=== PATIENT | female | born 1980 | race Caucasian/White ===

== ENCOUNTER 2023-03-31 20:46 | Emergency (ER) | payer MEDICAID, SELFPAY ==
[2023-03-31 20:29] VITALS: BP 129/87; PULSE 75; RESP 18; TEMP 36.6; O2SAT 99; BMI 26.1
--- NOTE | 2023-03-31 20:40 | ED_ITS ---
HPI - General Adult General Chief complaint: Headache Stated complaint: NAUSEA/LIGHT HEADED Time Seen by Provider: 03/31/23 20:54 Source: patient Mode of arrival: ambulance Limitations: no limitations History of Present Illness HPI narrative: carbon monoxide exposure. Patient was cooking for the family and family out doors. She has a past history of headaches. 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 States she is accustomed to developing headaches. Developed headache tonight and also felt a little nauseated. The CO detectors in the house started beeping. she went out side. She was checked by Squad and felt she was ok. Her nausea has resolved but they informed her she should get checked out. States she is feeling better. Daily cigarette smoker Related Data Allergies Allergy/AdvReac Type Severity Reaction Status Date / Time No Known Drug Allergies Allergy Verified 03/31/23 20:34 Review of Systems ROS Status of ROS 10 or more systems reviewed and unremarkable except as noted in history and below Exam Constitutional Vital Signs - 24 hr 03/31/23 20:29 Temperature 98 F Pulse Rate [Monitor] 75 Respiratory Rate 18 Blood Pressure [Left Arm] 129/87 H Pulse Oximetry 99 Oxygen Delivery Method Room Air Common normals: no apparent distress and oriented x3 HENMT Common normals: normocephalic, head/scalp atraumatic and hearing grossly normal bilaterally Eye Common normals: PERRL, EOMs intact bilaterally and conjunctivae normal Respiratory Common normals: normal respiratory effort, no retractions, no use of accessory muscles and clear to auscultation bilaterally Cardio Common normals: no JVD, regular rate, regular rhythm, S1 normal heart sound and S2 normal heart sound GI Common normals: Normal to inspection, nondistended, normoactive bowel sounds present and soft to palpation Extremity Common normals: normal to inspection, full ROM and normal capillary refill Neuro Common normals: oriented x3 and CN's II-XII intact bilaterally Psych Common normals: mental status grossly normal Course Vital Signs Vital signs: Vital Signs Temperature 98 F 03/31/23 20:29 Pulse Rate 75 03/31/23 20:29 Respiratory Rate 18 03/31/23 20:29 Blood Pressure 129/87 H 03/31/23 20:29 Pulse Oximetry 99 03/31/23 20:29 Oxygen Delivery Method Room Air 03/31/23 20:29 Temperature 98 F 03/31/23 20:29 Pulse Rate 75 03/31/23 20:29 Respiratory Rate 18 03/31/23 20:29 Blood Pressure 129/87 H 03/31/23 20:29 Pulse Oximetry 99 03/31/23 20:29 Oxygen Delivery Method Room Air 03/31/23 20:29 Medical Decision Making MDM Narrative Medical decision making narrative: patient presents after exposure to CO at home. Mild symptoms of headache and nausea. Nausea has resolved. GARCIA is mild . Workup in the department is WNL except she has mild hypokalemia that was supplemented. Discharged home to follow up with her doctor Lab Data Labs: Lab Results 03/31/23 03/31/23 Range/Units 20:54 21:30 WBC 11.2 H (4.0-11.0) 10^3/uL RBC 4.42 (4.20-5.40) 10^6/uL Hgb 13.7 (12.0-16.0) g/dL Hct 40.2 (36.0-48.0) % MCV 91.0 (81.0-99.0) fL MCH 31.0 (26.7-34.0) pg MCHC 34.1 (29.9-35.2) g/dL RDW 13.4 (11.0-15.0) % Plt Count 275 (150-450) 10^3/uL MPV 9.4 L (9.5-13.5) fL Neut % (Auto) 62.2 (43.0-75.0) % Lymph % (Auto) 28.8 (20.5-60.0) % [place] % (Auto) 6.6 (1.7-12.0) % Eos % (Auto) 1.2 (0.9-7.0) % Baso % (Auto) 0.7 (0.2-2.0) % Neut # (Auto) 6.9 H (1.4-6.5) 10^3/uL Lymph # (Auto) 3.2 (1.2-3.8) 10^3/uL [place] # (Auto) 0.7 (0.3-0.8) 10^3/uL Eos # (Auto) 0.1 (0.0-0.7) 10^3/uL Baso # (Auto) 0.1 (0.0-0.1) 10^3/uL Abs Immat Gran (auto) 0.06 H (0.00-0.03) 10^3/uL Imm/Tot Granulo (auto) 0.5 (0.0-0.5) % ABG pH 7.437 (7.350-7.450) ABG pCO2 38.3 (35.0-45.0) mmHg ABG pO2 93.3 (80.0-100.0) mmHg ABG HCO3 25.8 (22.0-26.0) mmol/L ABG O2 Saturation 98.1 % ABG Base Excess 1.6 (-2.0-2.0) mmol/L Ayad Test Positive (POSITIVE) Sodium 143 (136-145) mmol/L Potassium 3.3 L (3.5-5.1) mmol/L Chloride 105 (98-107) mmol/L Carbon Dioxide 28.1 (21.0-32.0) mmol/L Anion Gap 13.2 BUN 10.0 (7.0-18.0) mg/dL Creatinine 0.85 (0.55-1.02) mg/dL Est GFR ( Amer) >60 (>=60) Est GFR (Non-Af Amer) >60 (>=60) BUN/Creatinine Ratio 11.8 Glucose 95 (74-106) mg/dL Calcium 9.0 (8.5-10.1) mg/dL Discharge Plan Discharge Chief Complaint: Headache Clinical Impression: Carbon monoxide exposure, Hypokalemia Instructions: Carbon Monoxide Poisoning (ED), Hypokalemia (ED) Stand Alone Forms: Portal Instructions Referrals: Yimi Melgoza MD [Primary Care Provider] - 1 week Follow Up Appointments: follow up with Dr Melgoza next week
[2023-03-31 21:32] LABS: ABG PCO2 38.3 mmHg (35.0-45.0); Base Excess ABG 1.6 mmol/L (-2.0-2.0); HCO3 ABG 25.8 mmol/L (22.0-26.0); Oxygen Saturation ABG 98.1 %; PO2 ABG 93.3 mmHg (80.0-100.0); pH ABG 7.437 (7.350-7.450)
[2023-03-31 21:33] LABS: Allen Test POSITIVE (POSITIVE); O2 Mode ROOM AIR
[2023-03-31 21:37] LABS: Basophils Absolute Auto 0.1 10^3/uL (0.0-0.1); Basophils Percent Auto 0.7 % (0.2-2.0); Eosinophils Absolute Auto 0.1 10^3/uL (0.0-0.7); Eosinophils Percent Auto 1.2 % (0.9-7.0); Hematocrit 40.2 % (36.0-48.0); Hemoglobin 13.7 g/dL (12.0-16.0); Immature Granulocytes Abs Auto 0.06 10^3/uL (0.00-0.03); Immature Granulocytes Pct Auto 0.5 % (0.0-0.5); Lymphocytes Absolute Auto 3.2 10^3/uL (1.2-3.8); Lymphocytes Percent Auto 28.8 % (20.5-60.0); Mean Corpuscular HGB Conc 34.1 g/dL (29.9-35.2); Mean Platelet Volume 9.4 fL (9.5-13.5); Monocytes Absolute Auto 0.7 10^3/uL (0.3-0.8); Monocytes Percent Auto 6.6 % (1.7-12.0); Neutrophils Absolute Auto 6.9 10^3/uL (1.4-6.5); Neutrophils Percent Auto 62.2 % (43.0-75.0); Platelet Count 275 10^3/uL (150-450); Red Blood Count 4.42 10^6/uL (4.20-5.40); Red Cell Distribution Width 13.4 % (11.0-15.0); White Blood Count 11.2 10^3/uL (4.0-11.0)
[2023-03-31 21:53] LABS: Anion Gap 13.2; BUN Creatinine Ratio 11.8; Carbon Dioxide 28.1 mmol/L (21.0-32.0); Chloride 105 mmol/L (98-107); Estimated GFR (African America >60 (>=60); Estimated GFR (Non-African Ame >60 (>=60); Glucose 95 mg/dL (74-106); Potassium 3.3 mmol/L (3.5-5.1); Sodium 143 mmol/L (136-145)
[2023-03-31] MEDS: POTASSIUM CHLORIDE 10 MEQ ER TABLET 40 MEQ PO (23:00)
== END 2023-03-31 23:06 | disposition home or self-care (01) ==
PROVIDERS: Emergency Provider Internal Medicine; PCP Family Medicine
DX: E87.6 Hypokalemia (principal); T58.91XA Toxic effect of carbon monoxide from unspecified source, accidental (unintentional), initial encounter; F17.210 Nicotine dependence, cigarettes, uncomplicated
CPT/HCPCS: 36415; 36600; 80048; 82805; 85025; 99284

== ENCOUNTER 2023-07-07 10:52 | Outpatient (OUT) | payer MEDICAID, SELFPAY ==
[2023-07-07 11:42] LABS: Basophils Absolute Auto 0.1 10^3/uL (0.0-0.1); Basophils Percent Auto 0.6 % (0.2-2.0); Eosinophils Absolute Auto 0.1 10^3/uL (0.0-0.7); Eosinophils Percent Auto 1.4 % (0.9-7.0); Hematocrit 44.7 % (36.0-48.0); Immature Granulocytes Abs Auto 0.03 10^3/uL (0.00-0.03); Immature Granulocytes Pct Auto 0.3 % (0.0-0.5); Lymphocytes Absolute Auto 2.9 10^3/uL (1.2-3.8); Lymphocytes Percent Auto 30.8 % (20.5-60.0); Mean Corpuscular HGB Conc 33.6 g/dL (29.9-35.2); Mean Corpuscular Hemoglobin 30.8 pg (26.7-34.0); Mean Corpuscular Volume 91.8 fL (81.0-99.0); Mean Platelet Volume 10.2 fL (9.5-13.5); Monocytes Absolute Auto 0.6 10^3/uL (0.3-0.8); Monocytes Percent Auto 6.8 % (1.7-12.0); Neutrophils Absolute Auto 5.6 10^3/uL (1.4-6.5); Neutrophils Percent Auto 60.1 % (43.0-75.0); Platelet Count 312 10^3/uL (150-450); Red Blood Count 4.87 10^6/uL (4.20-5.40); Red Cell Distribution Width 12.3 % (11.0-15.0); White Blood Count 9.4 10^3/uL (4.0-11.0)
[2023-07-07 11:43] LABS: Estimated Average Glucose 117 mg/dL; Glycohemoglobin A1C 5.7 % (4.5-6.2)
[2023-07-07 12:40] LABS: Alanine Aminotransferase 44 U/L (14-59); Albumin Globulin Ratio 1.1; Albumin Level 3.9 g/dL (3.4-5.0); Alkaline Phosphatase 94 U/L (46-116); Anion Gap 12.3; Aspartate Amino Transferase 17 U/L (15-37); BUN Creatinine Ratio 9.2; Bilirubin Total 0.4 mg/dL (0.2-1.0); Calcium 9.1 mg/dL (8.5-10.1); Carbon Dioxide 29.8 mmol/L (21.0-32.0); Chloride 103 mmol/L (98-107); Chol HDL Ratio 7.5; Cholesterol 291 mg/dL (<=200); Estimated GFR (African America >60 (>=60); Estimated GFR (Non-African Ame >60 (>=60); Free T3 2.79 pg/mL (2.18-3.98); Globulin 3.7 g/dL; Glucose 108 mg/dL (74-106); HDL Cholesterol 39 mg/dL (40-60); Potassium 4.1 mmol/L (3.5-5.1); Sodium 141 mmol/L (136-145); Thyroid Stimulating Hormone 1.537 uIU/mL (0.358-3.740); Total Protein 7.6 g/dL (6.4-8.2); Triglycerides 158 mg/dL (<=150); VLDL CHOLESTEROL 31.6 mg/dL
[2023-07-08 12:09] LABS: Insulin 12.4 uIU/mL (2.6-24.9)
== END 2023-07-07 10:53 | disposition home or self-care (01) ==
LOC: LAB 10:53
PROVIDERS: PCP Family Medicine; Visit Provider Family Medicine
DX: R22.2 Localized swelling, mass and lump, trunk (principal); R00.0 Tachycardia, unspecified; E78.5 Hyperlipidemia, unspecified; R73.09 Other abnormal glucose; D64.9 Anemia, unspecified
CPT/HCPCS: 36415; 80053; 80061; 83036; 83525; 83540; 84436; 84443; 84481; 85025

== ENCOUNTER 2023-07-09 10:58 | Emergency (ER) | payer MEDICAID, SELFPAY ==
[2023-07-09 11:04] VITALS: BP 140/78; PULSE 77; RESP 20; TEMP 36.6; BMI 25.3
--- NOTE | 2023-07-09 11:44 | CT_ITS ---
The [address] [address] Patient Name: CHANTEL MARR MRN: [id number] date: 1980 Sex: F Assigned Patient Location: ER Current Patient Location: ER Accession/Order Number: [id number] Exam Date: 07/09/2023 12:05 Report Date: 07/09/2023 12:57 At the request of: MATTI ELIZALDE Procedure: CT chest w con EXAM: CT chest w con HISTORY: pain upper lateral chest wall, heavy smoker COMPARISON: 10/18/2022. TECHNIQUE: Axial CT imaging was performed through the chest with intravenous contrast. Multiplanar reformats were performed. Dose reduction techniques were achieved by using automated exposure control and/or adjustment of mA and/or kV according to patient size and/or use of iterative reconstruction technique. FINDINGS: Lungs: No consolidation, mass, or effusion. Mild emphysema. Airways: Normal. Mediastinum: No adenopathy. Aorta: No aneurysm. Cardiac: Normal size. No pericardial effusion. Pulmonary vasculature: Normal morphology. Bones: There are degenerative findings without acute bony abnormality. Axilla: No adenopathy. Thyroid gland: No abnormality demonstrated on provided imaging. Soft tissues: Unremarkable. Upper abdomen: Significant steatosis of the liver. Postsurgical clips. Other findings: None. CT/CT chest w con IMPRESSION: 1. No evidence of acute intrathoracic abnormality. No CT findings to explain patient's pain of the lateral right upper chest wall-recommend clinical management. 2. Significant steatosis of the liver. 3. Mild emphysema. Electronically authenticated by: ARTHUR WALTERS Date: 07/09/2023 12:57
[2023-07-09 12:31] VITALS: BP 140/90; PULSE 73; RESP 18; O2SAT 97
--- NOTE | 2023-07-09 13:10 | ED.GENADUL1 ---
HPI - General Adult General Chief complaint: Extremity Injury, Upper Stated complaint: RT SHOULDER PAIN Time Seen by Provider: 07/09/23 11:32 Source: patient Mode of arrival: walk-in Limitations: no limitations History of Present Illness HPI narrative: patient's here complaining of pain in her right shoulder area. Actually the specific area of discomfort is underneath the shoulder in the axillary area and the lateral scapular area in the posterior chest wall. She was seen here previously for this. X-rays were done that showed no gross abnormality but she was referred to a shoulder specialist orthopedist in [facility]. She followed up with that physician and his recommendation was physical therapy. She's not had any other treatment or intervention. She is right-handed dominant. She does repetitive work with her right arm. She said the pain is quite intense and it is in the area that described above not so much in the anterior glenoid area. There is no consistent tingling paresis paresthesias or radiculopathy going down into her wrist and hand area. She does not have any pain in the neck. She has not had a mammogram recently but is not known to have any breast disease. Her family doctor is talked her about follow-up mammograms. She's nota lumps. Related Data Home Medications Medication Instructions Recorded Confirmed diclofenac sodium 75 mg 75 mg PO Q12H 07/09/23 07/09/23 tablet,delayed release metoprolol tartrate 25 mg tablet 25 mg PO DAILY 07/09/23 07/09/23 omeprazole 20 mg capsule,delayed 20 mg PO DAILY 07/09/23 07/09/23 release simvastatin 20 mg tablet 20 mg PO DAILY 07/09/23 07/09/23 tizanidine 4 mg tablet 8 mg PO BEDTIME PRN muscle pain 07/09/23 07/09/23 Allergies Allergy/AdvReac Type Severity Reaction Status Date / Time No Known Drug Allergies Allergy Verified 03/31/23 20:34 PFSH PFSH Social History Smoking status: Current every day smoker Exam Narrative Exam Narrative: awake alert oriented ?3. Not uncomfortable when sitting still. Vital signs are stable. Examination the area of interest shows her to have no lymph nodes tenderness swelling or infectious process in the right axilla. Passive range of motion of the shoulder reproduces no discomfort in the shoulder girdle itself. She is able to elevate externally rotate internally rotate the shoulder and has discomfort in the upper axillary area and the lateral aspect of the scapular area on the right. There is no evidence of shingles or other skin lesions in this area. Her lungs are clear with no wheezes rales or rhonchi there is no pleural or pericardial rub. We did defer a breast examination since she has a primary care doctor and an [employer]. She does not known have any lumps in her breasts. Vascular examination upper limb is normal. Does not have any pain palpation the neck area. Constitutional Vital Signs, click to edit/add: Last Vital Signs Temp 97.8 F 07/09/23 11:04 Pulse 73 07/09/23 12:31 Resp 18 07/09/23 12:31 BP 140/90 07/09/23 12:31 Pulse Ox 97 07/09/23 12:31 O2 Del Method Room Air 07/09/23 11:04 Course Vital Signs Vital signs: Vital Signs Temperature 97.8 F 07/09/23 11:04 Pulse Rate 77 07/09/23 11:04 Respiratory Rate 20 07/09/23 11:04 Blood Pressure 140/78 07/09/23 11:04 Oxygen Delivery Method Room Air 07/09/23 11:04 Temperature 97.8 F 07/09/23 11:04 Pulse Rate 73 07/09/23 12:31 Respiratory Rate 18 07/09/23 12:31 Blood Pressure 140/90 07/09/23 12:31 Pulse Oximetry 97 07/09/23 12:31 Oxygen Delivery Method Room Air 07/09/23 11:04 Medical Decision Making MDM Narrative Medical decision making narrative: this patient's had this discomfort for several months now. She's been in thyroid by orthopedics who recommended physical therapy that she was not able to do. She is extremely active with her right arm. Because of her heavy, heavy smoking history I felt to be prudent to do a CT of her upper chest to make sure there is nothing in the pleural space ribs or upper chest that would account for her findings with referred pain. Her CT was negative for any acute findings but she did have a fatty liver that was discussed with her. Incidentally she does not drink much alcohol at all. I felt to be prudent follow-up with the orthopedic physician of record and consider following his treatment recommendations. She was also advised to follow-up with her MOLD LOFT WORKER or primary care doctor for a complete breast examination and she should also do self breast examinations. It is unlikely that that is contributing to her symptomatology in my opinion Discharge Plan Discharge Chief Complaint: Extremity Injury, Upper Clinical Impression: Chest wall pain Patient Disposition: Home, Self-Care Time of Disposition Decision: 13:25 Prescriptions / Home Meds: No Action diclofenac sodium 75 mg tablet,delayed release (DR/EC) 75 mg PO Q12H metoprolol tartrate 25 mg tablet 25 mg PO DAILY omeprazole 20 mg capsule,delayed release(DR/EC) 20 mg PO DAILY simvastatin 20 mg tablet 20 mg PO DAILY tizanidine 4 mg tablet 8 mg PO BEDTIME PRN (Reason: muscle pain) Additional Instructions: continue regular doses of NSAIDs for five days such as ibuprofen or Aleve. Follow-up with your orthopedist that he was seen previously for up-to-date treatment recommendations. Consider breast examination with your private physician Stand Alone Forms: Portal Instructions Referrals: Yimi Melgoza MD [Primary Care Provider] - 1 week
== END 2023-07-09 13:42 | disposition home or self-care (01) ==
PROVIDERS: Emergency Provider Emergency Medicine Emergency Medical Services; PCP Family Medicine
DX: R07.89 Other chest pain (principal); Z79.899 Other long term (current) drug therapy; F17.210 Nicotine dependence, cigarettes, uncomplicated
CPT/HCPCS: 71260; 99284; Q9967

== ENCOUNTER 2023-07-14 08:57 | Outpatient (OUT) | payer MEDICAID, SELFPAY ==
--- NOTE | 2023-07-14 08:59 | MM_ITS ---
Patient: CHANTEL MARR Exam Date: 07/14/2023 : 1980 Gender:F Ordering : DR Yimi Melgoza . Admission #: [id number] Family : DR Mic Giraldo . Order #: [id number] CLICK HERE TO VIEW EXAM RADIOLOGY REPORT PROCEDURE: MM TOMOSYNTHESIS SCREENING BI COMPARISON: MG MAMM SCREEN TOY W CAD, 04/15/2020. INDICATIONS: Screening Calculator Name NCI Breast Cancer Risk Assessment Tool 5 Year Breast Cancer Risk 0.60% Lifetime Breast Cancer Risk 7.70% Personal Breast Cancer No Personal Ovarian Cancer No Treatments None Family Cancers None LOCATION: [facility] BREAST COMPOSITION: Heterogeneously dense,which may obscure small masses. FINDINGS: DIAGNOSTIC CATEGORY 2--BENIGN FINDING: RIGHT BREAST: No significant suspicious finding. Scattered benign-appearing lymph nodes are present. No significant change has occurred. LEFT BREAST: No significant suspicious finding. No significant change has occurred. RECOMMENDATIONS: ROUTINE MAMMOGRAM AND CLINICAL EVALUATION IN 12 MONTHS. PLEASE NOTE: A NORMAL MAMMOGRAM DOES NOT EXCLUDE THE POSSIBILITY OF BREAST CANCER. A CLINICALLY SUSPICIOUS PALPABLE LUMP SHOULD BE BIOPSIED. Dictated by: James Solis M.D. on 07/15/2023 at 10:51 Approved by: James Solis M.D. on 07/15/2023 at 10:56
== END 2023-07-14 08:58 | disposition home or self-care (01) ==
LOC: MAMMO 08:57
PROVIDERS: PCP Family Medicine; Visit Provider Family Medicine
DX: Z12.31 Encounter for screening mammogram for malignant neoplasm of breast (principal)
CPT/HCPCS: 77063; 77067

== ENCOUNTER 2023-08-22 15:01 | Outpatient (OUT) | payer MEDICAID, SELFPAY ==
--- NOTE | 2023-08-22 15:09 | MR_ITS ---
[place] [id number] Patient Name: CHANTEL MARR MRN: [id number] date: 1980 Sex: F Assigned Patient Location: MRI Current Patient Location: MRI Accession/Order Number: [id number] Exam Date: 08/22/2023 15:15 Report Date: 08/22/2023 22:04 At the request of: EILEEN BELTRAN Procedure: MR cervical spine wo con EXAMINATION: MR cervical spine wo con HISTORY: Cervical Radiculopathy M54.12 pain in the right shoulder. COMPARISON: None. TECHNIQUE: Multiplanar, multisequence MRI images of the cervical spine with intravenous contrast. FINDINGS: The cervical spine is straightened. There is no subluxation. Bone marrow signal appears within normal limits. Disc space heights preserved. 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 No definite cord compression or abnormal signal in the cervical cord. C2-C3: Mild left facet arthropathy without spinal canal foraminal stenosis. C3-C4: There is a broad-based central to left foraminal disc protrusion. There is moderate bilateral facet arthropathy and left uncovertebral osteophyte. There is resulting moderate central spinal canal and asymmetric moderate left lateral recess stenosis. C4-C5: Broad-based disc protrusion most prominent in the central zone. Moderate facet arthropathy. There is moderate spinal canal stenosis without cord compression. No foraminal stenosis. C5-C6: Moderate bilateral facet arthropathy without spinal canal or foraminal stenosis. C6-C7: Broad-based disc protrusion. Mild spinal canal stenosis. No foraminal stenosis. C7-T1: No spinal canal or significant neural foraminal stenosis. MR/MR cervical spine wo con IMPRESSION: 1. There is mild to moderate degenerative disc disease and facet arthropathy in the cervical spine. 2. At C3-C4, there is moderate spinal canal and moderate left foraminal stenosis secondary to a central to left foraminal disc protrusion. 3. At C4-C5, there is moderate spinal canal stenosis secondary to central disc protrusion. Electronically authenticated by: DEBRA ALEXANDER Date: 08/22/2023 22:04
== END 2023-08-22 15:02 | disposition home or self-care (01) ==
LOC: MRI 15:01
PROVIDERS: PCP Family Medicine; Visit Provider Family Medicine
DX: M54.12 Radiculopathy, cervical region (principal); M50.30 Other cervical disc degeneration, unspecified cervical region; M48.02 Spinal stenosis, cervical region
CPT/HCPCS: 72141

== ENCOUNTER 2023-11-15 11:27 | Outpatient (OUT) | payer MEDICAID, SELFPAY ==
--- NOTE | 2023-11-15 11:32 | MR_ITS ---
[address] [address] Patient Name: CHANTEL MARR MRN: [id number] date: 1980 Sex: F Assigned Patient Location: MRI Current Patient Location: MRI Accession/Order Number: [id number] Exam Date: 11/15/2023 11:55 Report Date: 11/15/2023 14:58 At the request of: EILEEN BLETRAN Procedure: MR head/brain wo con EXAM: MR head/brain wo con CLINICAL INDICATION: cerebral cysts G93.0, Migraine G43.909 COMPARISON: MRI brain 06/15/2021. TECHNIQUE/PROTOCOL: Standard noncontrast protocol brain MRI performed (Sagittal T1 with axial T1, T2, GRE, FLAIR, and diffusion-weighted imaging). FINDINGS: No restricted diffusion, extra-axial fluid collection, hydrocephalus, midline shift, or other mass effect. Intracranial flow voids are maintained. Unchanged scattered small hyperintense T2/FLAIR periventricular and subcortical foci. Stable right parietal craniotomy changes with volume loss of the superior right parietal lobe. Cystic enlargement of the posterior body of the right lateral ventricle is morphologically unchanged since 06/15/2021. Normal marrow signal. No soft tissue abnormalities. Trace scattered paranasal sinus mucosal thickening, most pronounced in the right maxillary sinus. Trace bilateral mastoid effusions. MR/MR head/brain wo con IMPRESSION: 1. No acute intracranial process. 2. Stable right parietal craniotomy changes with volume loss of the superior right parietal lobe. Cystic enlargement of the posterior body of the right lateral ventricle is morphologically unchanged since 06/15/2021. 3. Unchanged scattered small hyperintense T2/FLAIR periventricular and subcortical foci. These could reflect sequela of migraine headaches, demyelinating process, or chronic microvascular angiopathic changes. Electronically authenticated by: MICHAEL BELTRE Date: 11/15/2023 14:58
--- OUTSIDE RECORDS SUMMARY | 2023-11-15 11:33 | XMS_ITS | CCD ---
Author Name Unknown Address [address] [place] [address] Organization [facility] [place] Care Team Providers Care Business Affairs Manager Name Role Phone Eileen Melgoza Primary Care Physician José CLARK Attending Unavailable José CLARK Attending Unavailable MARY WORRELL Admitting Unavailable MARY WORRELL Attending Unavailable HOY ., DR ARELLANO Primary Care Unavailable MARY WORRELL Consulting Unavailable HOY ., DR ARELLANO Admitting Unavailable HOY ., DR ARELLANO Attending Unavailable HOY ., DR ARELLANO Primary Care Unavailable HOY ., DR ARELLANO Consulting Unavailable PAULETTE MKCEON Consulting Unavailable HOY ., DR ARELLANO Primary Care Unavailable PAY ., DR OCONNOR Admitting Unavailable PAY ., DR OCONNOR Attending Unavailable PAY ., DR OCONNOR Consulting Unavailable HOY ., DR ARELLANO Primary Care Unavailable HAY ., DR LAWTON Admitting Unavailable HAY ., DR LAWTON Attending Unavailable HAY ., DR LAWTON Consulting Unavailable NEFPAULETTE PRESSLEY Consulting Unavailable HOY ., DR ARELLANO Admitting Unavailable HOY ., DR ARELLANO Attending Unavailable HOY ., DR ARELLANO Primary Care Unavailable HOY ., DR ARELLANO Consulting Unavailable ZIEBER, DR MEHDI Jackson Consulting Unavailable HOY ., DR ARELLANO Admitting Unavailable HOY ., DR ARELLANO Attending Unavailable HOY ., DR ARELLANO Primary Care Unavailable HOY ., DR ARELLANO Consulting Unavailable [place], DR IDRIS [place] Consulting Unavailable HOY ., DR ARELLANO Admitting Unavailable HOY ., DR ARELLANO Attending Unavailable HOY ., DR ARELLANO Primary Care Unavailable HOY ., DR ARELLANO Admitting Unavailable HOY ., DR ARELLANO Attending Unavailable HOY ., DR ARELLANO Primary Care Unavailable MISC, DR UNGER Admitting Unavailable MISC, DR UNGER Attending Unavailable HOY ., DR ARELLANO Primary Care Unavailable HOY ., DR ARELLANO Admmark Unavailable HOY ., DR ARELLANO Attending Unavailable HOY ., DR ARELLANO Primary Care Unavailable Erwin Salgado Unavailable Unavailable Primary Care Provider Unavailabl e PROVIDER, UNKNOWN Attending Unavailable PROVIDER, UNKNOWN Admitting Unavailable Allergies Allergy Classification Reported Allergen(s) Allergy Type Date of Onset Reaction(s) Facility (1 source) No Known Medication Allergies; Translations: [No Known Medication Allergies] Propensity to adverse reactions (disorder) [facility] Medications Current Medications Medication Drug Class(es) Dates Sig (Normalized) Sig (Original) Acetaminophen (1 source) Acetaminophen Ac tive celecoxib 200 mg oral capsule (1 source) Nonsteroidal Anti-inflammatory Drug take 1 capsule by mouth every twenty-four hours Celecoxib 200 MG 1 capsule with food Orally Once a day Active omeprazole 20 mg delayed release oral capsule (1 source) Proton Pump Inhibitor take 1 capsule by mouth once daily Omeprazole 20 MG 1 capsule 30 minutes before morning meal Orally Once a day Active Completed/Discontinued Medications Medication Drug Class(es) Dates Sig (Normalized) Sig (Original) triamcinolone acetonide 40 mg/ml injectable suspension (1 source) Corticosteroid Start: 12-30-2022 Kenalog-40 Dec, 40 mg Problems Active Problems Problem Classification Problem Date Documented Da te Episodic/Chronic Abdominal pain (1 source) Abdominal pain; Translations: [Abdominal pain] Episodic Anxiety disorders (3 sources) Panic attack; Translations: [Other specified anxiety disorders] Onset: 2 05-05-2022 Chronic Chronic obstructive pulmonary disease and bronchiectasis (2 sources) Chronic obstructive lung disease 05-05-2022 Chronic Esophageal disorders (2 sources) Gastroesophageal reflux disease 05-05-2022 Chronic Headache; including migraine (2 sources) Migraine 05-05-2022 Chronic Mood disorders (2 sources) Depressive disorder 05-05-2022 Chronic Neoplasms of unspecified nature or uncertain behavior (3 sources) Neoplasm of uncertain behavior of skin; Translations: [Neoplasm of uncertain behavior of skin] Onset: 2 Episodic Noninfectious gastroenteritis (2 sources) Chronic diarrhea 05-05-2022 Episodic Nonspecific chest pain (5 sources) Chest pain, unspecified; Translations: [CHEST PAIN UNSPECIFIED] Onset: 2 Episodic Other aftercare (1 source) Other longterm (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 therapy; Translations: [OTH DETENTION CURRENT DRUG THERAPY] Onset: 3 Episodic Other and unspecified benign neoplasm (2 sources) Tubular adenoma 05-05-2022 Episodic Other connective tissue disease (1 source) Bursitis of right shoulder Episodic Other connective tissue disease (1 source) Other enthesopathies, not elsewhere classified Episodic Other female genital disorders (2 sources) Dysplasia of cervix 05-05-2022 Episodic Other gastrointestinal disorders (2 sources) Chronic idiopathic constipation 05-05-2022 Chronic Other lower respiratory disease (4 sources) Dyspnea, unspecified; Translations: [DYSPNEA UNSPECIFIED] Onset: 2 Episodic Other lower respiratory disease (5 sources) Chronic cough; Translations: [CHRONIC COUGH] Onset: 2 Episodic Other nervous system disorders (2 sources) Cerebral cyst 05-05-2022 Chronic Other non-traumatic joint disorders (4 sources) Pain in right shoulder; Translations: [PAIN IN RIGHT SHOULDER] Onset: 3 Episodic Other non-traumatic joint disorders (1 source) Other specified joint disorders, right shoulder Episodic Other nutritional; endocrine; and metabolic disorders (2 sources) Overweight in adulthood with body mass index of 25 or more but less than 30 05-26-2022 Episodic Poisoning by nonmedicinal substances (2 sources) Toxic effect of carbon monoxide; Translations: [Toxic effect of carbon monoxide from unspecified source, accidental (unintentional), initial encounter] Onset: 3 03-31-2023 Episodic Residual codes; unclassified (1 source) Acquired absence of other specified parts of digestive tract; Translations: [ACQ ABSENCE OTH PART DIGESTV TRACT] Onset: 3 Episodic Spondylosis; intervertebral disc disorders; other back problems (2 sources) Cervical radiculopathy 05-05-2022 Episodic Sprains and strains (1 source) Strain of unspecified muscle, fascia and tendon at shoulder and upper arm level, left arm, initial encounter; Translations: [STRN UNS MSC F TND SHLDR UA LA INIT] Onset: 3 Episodic Substance-related disorders (3 sources) Smoker; Translations: [Nicotine dependence, cigarettes, uncomplicated] Onset: 2 05-05-2022 Chronic Unclassified (3 sources) COUGH, UNSPECIFIED; Translations: [COUGH, UNSPECIFIED] Onset: 2 Unclassified (1 source) CONTACT W/AND (SUSP) EXPOS COVID-19; Translations: [CONTACT W/AND (SUSP) EXPOS COVID-19] Onset: 2 Past or Other Problems Problem Classification Problem Date Documented Da te Episodic/Chronic Unclassified (1 source) COUGH, UNSPECIFIED; Translations: [COUGH, UNSPECIFIED] Onset: 04-01-2022 Results Test Name Value Interpretation Reference Range Facility Progress Noteson 03-31-2023 Director Of Culture Authentication Interface Message Text EMERGENCY TRIAGE, TREAT AND TRANSPORT (ET3) DOCUMENTATION OF TELEHEALTH VISIT Date / Time: 03/31/20231999 Name: Maddison Miranda : 1980 SSN: (Not on file) EMS Agency: [facility] [x] Verbal consent obtained [] Implied consent - patient with potential emergency medical condition requiring assessment of capacity to refuse treatment and/or transport VITAL SIGNS: see flowsheet documentation Reason for Telehealth Visit: Carbon monoxide exposure History of Present Illness: Exposure to CO while cooking with gas stove. Also has gas dryer and furnace but neither were running. [place] nauseous and lightheaded, headache. Was inside for about an hour. Eyes hurt a little bit too. CO detector went off in basement below kitchen where she was cooking. Chronic neuro symptoms due to prior brain surgery - has a cyst on her brain that she is getting procedures to shrink to allow CSF flow. Fire checked a level and it was 8 initially. Additional pertinent PMHx, SocHx, FamHx: prior brain surgery Review of Systems: Denies the following: new numbness, tingling, weakness, double vision Exam: General: Awake, no distress ENT: normocephalic, atraumatic Pulmonary: No respiratory distress Cardiovascular: Well perfused Neurologic: Oriented to person, place, time and events. Moving all extremities equally. Psychiatric: Appropriate. Good insight and judgement. Medical Decision Making: Symptoms could be c/w exposure to CO poisoning. FD confirmed that the level was elevated and the source was a water heater. Advised patient she should get checked out in hospital to see HbCO and she is agreeable. Additional history from EMS and FD Disposition Supported by Telehealth Assessment: ET3 transport decisions: Transport to hospital EMS Disposition Reported: Same ET3 Encounter Completed by: Viral Dowling MD Normal [facility] XR SHOULDER RT 2V or >on XR SHOULDER RT 2V or > EXAM: XR SHOULDER RT 2V or > HISTORY: Pain of right shoulder joint for the past 2 weeks with no known injury. COMPARISON: None. TECHNIQUE: 3 views of the right shoulder were obtained. FINDINGS: There is no evidence of an acute fracture or dislocation. There is mild narrowing of the acromioclavicular joint. The glenohumeral joint appears intact. No abnormal soft tissue calcifications are present. IMPRESSION: No acute fracture or dislocation. Mild degenerative changes are seen at the acromial clavicular joint. Comparison with a previous study may be helpful in determining the chronicity of these findings. Electronically authenticated by: PAULETTE MCKEON Date: 2022-12-28 14:22 Normal [facility] CT CHEST W CONon 10-18-2022 CT CHEST W CON EXAMINATION: CT CHES T W CON HISTORY: Dyspnea , posterior left chest pain, cough COMPARISON: No relevant comparison available. TECHNIQUE: Multi-planar CT images were created with IV contrast. Axial, Coronal, and Sagittal images. Dose reduction techniques were achieved by using automated exposure control and/or adjustment of mA and/or kV according to patient size and/or use of iterative reconstruction technique. FINDINGS: LUNGS: No visible pulmonary disease. PLEURA: No mass, effusion, or pneumothorax. VASCULATURE: No abnormality. ANDRZEJ: No mass or adenopathy. MEDIASTINUM: No mass or adenopathy. CARDIAC: No enlargement, pericardial thickening, or significant calcification. AORTA: No aneurysm or dissection. CHEST WALL: No mass or axillary adenopathy. BONES: No bone lesion or fracture. LIMITED ABDOMEN: No suspicious findings Limited images of the upper abdomen. OTHER: Negative. IMPRESSION: 1. Clear lungs. No suspicious findings to account for patient's symptoms. 2. Unremarkable ribs. Electronically authenticated by: MEHDI CHAVEZ Date: 2022-10-18 15:16 Normal [facility] PROF 14(COMP METB)on 022 Albumin [Mass/Vol] 3.9 g/dL Normal 3.4-5.0 [facility] Comment on above: Performed By: #### H STROBETSY, CMP #### [facility] [address] [place] [address] Dr. Adriana Pandey Albumin/Globulin [Mass ratio] 1.2 {ratio} Normal [facility] Comment on above: Performed By: #### H STROPN, CMP #### [facility] [address] [address] [address] Adriana Pandey ALP [Catalytic activity/Vol] 92 U/L Normal 46-116 [facility] Comment on above: Performed By: #### H STROPN, CMP #### [facility] [address] [address] [address] Adriana Pandey ALT [Catalytic activity/Vol] 29 U/L Normal 14-59 [facility] Comment on above: Performed By: #### H STROPN, CMP #### [facility] [address] [address] [address] Adriana Pandey Anion gap [Moles/Vol] 15.7 mmol/L Normal [facility] Comment on above: Performed By: #### H STROPN, CMP #### [facility] [address] [place] [address] Dr. Adriana Pandey AST [Catalytic activity/Vol] 17 U/L Normal 15-37 [facility] Comment on above: Performed By: #### H STROPN, CMP #### [facility] [address] [place] [address] Dr. Adriana Pandey Bilirubin [Mass/Vol] 0.2 mg/dL Normal 0.2-1.0 [facility] Comment on above: Performed By: #### H STROPN, CMP #### [facility] [address] [place] [address] Dr. Adriana Pandey Calcium [Mass/Vol] 8.9 mg/dL Normal 8.5-10.1 [facility] Comment on above: Performed By: #### H STROPN, CMP #### [facility] [address] [place] [address] Dr. Adriana Pandey Chloride [Moles/Vol] 101 mmol/L Normal 98-107 [facility] Comment on above: Performed By: #### H STROPN, CMP #### [facility] [address] [place] [address] Dr. Adriana Pandey CO2 [Moles/Vol] 24.8 mmol/L Normal 21.0-32.0 [facility] Comment on above: Performed By: #### H STROPN, CMP #### [facility] [address] [address] [address] Adriana Pandey Creatinine [Mass/Vol] 0.91 mg/dL Normal 0.55-1.02 [facility] Comment on above: Performed By: #### H STROPN, CMP #### [facility] [address] [address] [address] Adriana Pandey EGFR-AF BOTSWANAN >60 Normal >=60 [facility] Comment on above: Performed By: #### H STROPN, CMP #### [facility] [address] [place] [address] Dr. Adriana Pandey EGFR-NON AF BOTSWANAN >60 Normal >=60 [facility] Comment on above: Performed By: #### H STROPN, CMP #### [facility] [address] [place] [address] Dr. Adriana Pandey Globulin (S) [Mass/Vol] 3.3 g/dL Normal [facility] Comment on above: Performed By: #### H STROPN, CMP #### [facility] [address] [place] [address] Dr. Adriana Pandey Glucose [Mass/Vol] 134 mg/dL Critically high 74-[address] [facility] Comment on above: Performed By: #### H STROPN, CMP #### [facility] [address] [address] [address] Adriana Pandey Potassium [Moles/Vol] 3.5 mmol/L Normal 3.5-5.1 [facility] Comment on above: Performed By: #### H STROPN, CMP #### [facility] [address] [address] [address] Adriana Pandey Protein [Mass/Vol] 7.2 g/dL Normal 6.4-8.2 [facility] Comment on above: Performed By: #### H STROPN, CMP #### [facility] [address] [place] [address] Dr. Adriana Pandey Sodium [Moles/Vol] 138 mmol/L Normal 136-145 [facility] Comment on above: Performed By: #### H ERAN, CMP #### [facility] [address] [place] [address] Dr. Adriana Pandey Urea nitrogen [Mass/Vol] 12.0 mg/dL Normal 7.0-18.0 [facility] Comment on above: Performed By: #### H ERAN, CMP #### [facility] [address] [place] [address] Dr. Adriana Pandey Urea nitrogen/Creatinine [Mass ratio] 13.2 mg/mg Normal [facility] Comment on above: Performed By: #### H ERAN, CMP #### [facility] [address] [place] [address] Dr. Adriana Pandey TROPONIN, HIGH SENSITIVITYon 10-01-2022 HSTROP 4.1 pg/mL Normal 4.0-51.3 [facility] Comment on above: Result Comment: CUT- OFF POINTS HAVE BEEN ESTABLISHED BASED ON THE FOURTH UNIVERSAL DEFINITIONS OF MYOCARDIAL INFARCTION. THE UPPER REFERENCE LIMIT (URL) OF TROPONIN, DEFINED THE 99TH PERCENTILE OF cTnI DISTRIBUTION IN A REFERENCE POPULATION, HAS BEEN CONFIRMED THE DECISION THRESHOLD FOR [place] DIAGNOSIS. Performed By: #### H ERAN, CMP #### [facility] [address] [place] [address] Dr. Adriana Pandey XR CHEST 2 Von 09-22-2022 XR CHEST 2 V EXAM: XR CHEST 2 V HISTORY: Dyspnea . This is a 41-year-old with chronic intermittent cough for the past year, and acute chest pain for the past 2 weeks. COMPARISON: 02/19/2022 TECHNIQUE: Upright PA and lateral chest x-ray FINDINGS: The heart is not enlarged and the vasculature is not distended. No acute infiltrate, effusion or pneumothorax is identified. The osseous structures are grossly intact. IMPRESSION: No acute infiltrate or evidence of cardiac decompensation. The overall appearance of the chest is unchanged. Electronically authenticated by: PAULETTE MCKEON Date: 2022-09-22 15:15 Normal [facility] Physician Referralon 022 Physician Referral [id number] Normal [facility] Covid-19 PCR (CVDTBH)on SARS-CoV-2 (COVID-19) RNA JIMMIE+probe Ql (Unsp spec) Not detected Normal NOT DETECTED [facility] Comment on above: Result Comment: This test is not yet approved or cleared by the [place] FDA. When there are no FDA-approved or cleared tests available, and other criteria are met, FDA can make tests available under an emergency access mechanism called an Emergency Use Authorization (EUA). The EUA for this test is supported by the [place] [employer] [employer] of Health and Human Service's (HHS's) declaration that circumstances exist to justify the emergency use of in vitro diagnostics for the detection and/or diagnosis of the virus that causes COVID-19. This EUA will remain in effect (meaning this test can be used) for the duration of the COVID-19 declaration justifying emergency of IVDs, unless it is terminated or revoked by FDA (after which the test may no longer be used). When diagnostic testing is negative, the possibility of a false negative should be considered in the context of a patient's recent exposures and the presence of clinical signs and symptoms consistent with SARS-CoV-2. Performed By: #### [facility] #### [facility] [address] [place] [address] Dr. Adriana Pandey SYMPTOMATIC COVID-19 ANTIGEN on 04-01-2022 EUA Statement SEE BELOW Normal [facility] Comment on above: Result Comment: This test has not been FDA cleared or approved, but has been authorized by the FDA under an Emergency Use Authorization (EUA) for use by authorized laboratories certified under CLIA that meet the requirements to perform moderate or high complexity testing. This test has been authorized only for the detection of proteins from SARS-CoV-2, not for any other viruses or pathogens. The emergency use of this test is authorized for the duration of the declaration that circumstances exist justifying the authorization of emergency use of in vitro diagnostic tests for detection and/or diagnosis of Covid-19 under section 564(b)(1) of the Act, 21 U.S.C. 360bbb-3(b)(1), unless the declaration is terminated or authorization is revoked sooner. Performed By: #### C VDAGS #### [facility] [address] [place], [place] [address] Dr. Adriana Pandey SARS-CoV-2 (COVID-19) RNA JIMMIE+probe Ql (Unsp spec) Negative Normal NEGATIVE [facility] Comment on above: Performed By: #### C VDAGS #### [facility] [address] [place], [place] [address] Dr. Adriana Pandey XR CHEST 2 Von 02-19-2022 XR CHEST 2 V EXAMINATION: XR CHES T 2 V HISTORY: Chronic cough COMPARISON: 05/28/2021 TECHNIQUE: PA and lateral FINDINGS: LUNGS: No significant pulmonary parenchymal abnormalities. VASCULATURE: No increased pulmonary vasculature. PLEURA: No pneumothorax, effusion, or pleural thickening. CARDIAC: No cardiomegaly or cardiac silhouette abnormality. MEDIASTINUM: No visible mass or adenopathy. BONES: No fracture or visible bone lesion. OTHER: Negative. IMPRESSION: No acute disease. Electronically authenticated by: IDRIS LAGUNA Date: 2022-02-19 17:05 Normal [facility] SACRUM COCCYXon 12-15-2021 SACRUM COCCYX [facility] Department of Radiology [address] [place] [id number] ======== Patient Name: MADDISON MIRANDA : 1980 Sex: F Age: Race: White Pt. Location: Patient Status: D Ordered Date: 12/15/2021 2:35:00 PM Completed Date: 12/15/2021 02:44 PM Requesting Provider: VIRIDIANA DELACRUZ Attending Provider: VIRIDIANA DELACRUZ Report Copy To: EILEEN MELGOZA Signs & Symptoms: M53.3 Sacrococcygeal disorders, not elsewhere classified I10 History: Comments: , coccyx pain , Views (X-RAY, SACRUM AND COCCYX): Radiologic Protocol , coccyx pain , Views Exam: SACRUM COCCYX ======== SACRUM COCCYX 12/15/2021 2:46 PM CLINICAL INDICATIONS: M53.3 Sacrococcygeal disorders, not elsewhere classified I10 TECHNOLOGIST COMMENTS: complains of chronic coccyx and sacrum pain and numbness, no injury. left side worse than the right. QUESTION FOR THE RADIOLOGIST: , coccyx pain , Views (X-RAY, SACRUM AND COCCYX): Radiologic Protocol , coccyx pain , Views PROTOCOLS: AP(PA) and Lateral views were obtained. COMPARISON: None FINDINGS: No evidence for an acute fracture or destructive lesion of the sacrum or coccyx. Punctate densities in the pelvis could be from prior ingested barium, less likely small radiopaque foreign bodies. Focal area of sclerosis overlying the intertrochanteric region of the right hip. IMPRESSION: 1. Punctate densities in the pelvis which could be previously ingested barium or less likely small radiopaque foreign bodies. 2. Sclerotic focus overlying the intertrochanteric region of the right hip. This is most likely benign in the absence of any provided history of malignancy. Dedicated right hip radiographs are advised. 3. Otherwise unremarkable radiographs of the sacrum and coccyx. Electronically signed: Kike Lino. Transcribed by: [email or web address], User Resident: Electronically Signed by: KIKE LINO @ 12/16/2021 08:58 AM Normal [facility] Comment on above: Order Comment: , harvinder cyx pain , Views (X-RAY, SACRUM AND COCCYX): Radiologic Protocol , coccyx pain , Views Vital Signs Date Time Vital Sign Value Performing Clinician Facility 03-31-2023 20:00-0400 Diastolic blood pressure 90 mm[Hg] [facility] 03-31-2023 20:00-0400 Heart rate 83 /min [facility] 03-31-2023 20:00-0400 Respiratory rate 18 /min [facility] 03-31-2023 20:00-0400 SaO2% (BldA) [Mass fraction] 96 % [email or web address]-31-[facility] 20:00-0400 Systolic blood pressure 162 mm[Hg] [email or web address] 12-30-2022 09:30-0500 Body height 167.64 cm Erwin Salgado Other [facility] Other 12-30-2022 09:30-0500 Body mass index (BMI) [Ratio] 27.11 kg/m2 Erwin Salgado Other [facility] Other 12-30-2022 09:30-0500 Body weight 76.2 kg Erwin Salgado Other [facility] Other 05-26-2022 15:43-0400 Blood Pressure Location [facility] [place] 05-26-2022 15:43-0400 Diastolic blood pressure 82 mm[Hg] [facility] 05-26-2022 15:43-0400 Heart rate 76 /min [facility] 05-26-2022 15:43-0400 Respiratory rate 16 /min José epicurio [facility] 05-26-2022 15:43-0400 Systolic blood pressure 124 mm[Hg] José epicurio [facility] Encounters Encounter Date Encounter Type Care Provider Facility Start: 03-31-2023 End: 04-22-2023 ambulatory [facility] Treat and Transport Start: 03-31-2023 End: 03-31-2023 [facility] Comment on above: Arrived Start: 12-30-2022 End: 12-30-2022 ambulatory Erwin Salgado Other [facility] Other Start: 12-30-2022 Office outpatient ne w 30 minutes Erwin Salgado [facility] Start: 12-28-2022 End: 12-28-[address] EILEEN MELGOZA . Facility:[facility] Start: 10-18-2022 End: 10-19-[address] EILEEN MELGOZA . Facility:[facility] Start: 10-05-2022 ambulatory DR EILEEN MELGOZA . Facili ty:[facility] Start: 10-01-2022 End: 10-01-[address] EILEEN MELGOZA . Facility:[facility] Start: 09-22-2022 End: 09-23-[address] EILEEN MELGOZA . Facility:[facility] Start: 07-21-2022 ambulatory José CLARK Facility :[facility] Start: 07-21-2022 End: 07-21-2022 Patient encounter procedure José CLARK General Surgery Nill/Said [facility] Start: 07-06-[address] EILEEN MELGOZA . Facili ty:[facility] Start: 05-26-2022 End: 05-27-2022 ambulatory José CLARK [facility] Start: 05-26-2022 End: 05-26-2022 Patient encounter procedure José CLARK General Surgery Nill/Said [facility] Start: 04-30-2022 ambulatory José CLARK Facility:[facility] Start: 04-01-2022 End: 04-01-2022 ambulatory MARY WORRELL Facility:[facility] Start: 03-11-[address] EILEEN MELGOZA . Facili ty:[facility] Start: 02-19-2022 End: 02-20-[address] EILEEN MELGOZA . Facility:[facility] Start: 01-26-[address] DOCTOR COHEN Facility :[facility] Procedures Date Procedure Procedure Detail Performing Clinician Start: 10-24-2017 Cranioplasty José HENSLEY Comment on above: totanium plate Start: 10-24-2017 Craniotomy José HENSLEY Comment on above: right parietal Cholecystectomy José CLARK Fallopian tube excision Marquis CLARK Ligation of fallopian tube Charmaine CLARK Transcervical sterilization José CLARK Plan of Treatment Date Care Activity Detail Author Start: 2028 Shingles (RZV) Vacci ne (1 of 2) [facility]ing[facility] (RZV) [facility] Start: 2018 Screening for malign ant neoplasm of breast [facility] Start: 1999 Screening for malign ant neoplasm of cervix Pap Smear [facility] Start: 1996 Hepatitis C screening Hepatitis C An tibody [facility] Start: 1996 Tetanus + diphtheria + acellular pertussis vaccine (product) Tdap Booster [facility] Start: 1993 HIV screening HIV Test [facility] Start: 06-17-1979 COVID-19 Vaccine (#1) COVID-19 Vacci ne (#1) [facility] Payers Date Payer Category Payer Medicaid [id number] 1978 Unknown [id number] 2.16.8 [id number] 1978 Unknown [id number] 2.16.8 [id number] 1978 Unknown [id number] 2.16.84 [id number] 1978 Unknown [id number] 2.16.84 0.1.522479.3.579.2.593 1978 Unknown [id number] 2.16.84 0.1.115363.3.579.2.593 1978 Unknown [id number] 2.16.84 0.1.286954.3.579.2.593 1978 Unknown [id number] 2.16.84 0.1.319276.3.579.2.593 1978 Unknown [id number] 2.16.84 0.1.929875.3.579.2.593 1978 Unknown [id number] 2.16.84 0.1.093859.3.579.2.593 1978 Unknown [id number] 2.16.84 0.1.664499.3.579.2.593 1978 Unknown [id number] 2.16.84 0.1.757691.3.579.2.593 1978 Unknown [id number] 2.16.84 0.1.784652.3.579.2.593 1978 Unknown [id number] 2.16. [id number] 1959 Unknown [id number] Social History Date Type Detail Facility Start: 05-26-2022 Tobacco smoking status Heavy tobacco smoker (finding) [facility] Tobacco smoking status Never General Surgery [facility] Sex Assigned At Female Genera l Surgery [facility] Tobacco smoking status [facility] Tobacco smoking consumption unknown [facility] Start: 1980 Sex Assigned At Not [facility] Functional Status Date Assessment Result Facility 05-26-2022 Functional Status N/A General Shah rgery [facility] History of Present illness Narrative 03-31-2023 Viral Dowling MD - 03/31/2023 7:59 PM EDT Note Date & Type Note Facility 03-31-2023 History of Presen t illness Narrative Images from the original note were not included. EMERGENCY TRIAGE, TREAT AND TRANSPORT (ET3) DOCUMENTATION OF TELEHEALTH VISIT Date / Time: 03/31/20231999 Name: Maddison Miranda : 1980 SSN: (Not on file) EMS Agency: [facility] [x] Verbal consent obtained [] Implied consent - patient with potential emergency medical condition requiring assessment of capacity to refuse treatment and/or transport VITAL SIGNS: see flowsheet documentation Reason for Telehealth Visit: Carbon monoxide exposure History of Present Illness: Exposure to CO while cooking with gas stove. Also has gas dryer and furnace but neither were running. [place] nauseous and lightheaded, headache. Was inside for about an hour. Eyes hurt a little bit too. CO detector went off in basement below kitchen where she was cooking. Chronic neuro symptoms due to prior brain surgery - has a cyst on her brain that she is getting procedures to shrink to allow CSF flow. Fire checked a level and it was 8 initially. Additional pertinent PMHx, SocHx, FamHx: prior brain surgery Review of Systems: Denies the following: new numbness, tingling, weakness, double vision Exam: General: Awake, no distress ENT: normocephalic, atraumatic Pulmonary: No respiratory distress Cardiovascular: Well perfused Neurologic: Oriented to person, place, time and events. Moving all extremities equally. Psychiatric: Appropriate. Good insight and judgement. Medical Decision Making: Symptoms could be c/w exposure to CO poisoning. FD confirmed that the level was elevated and the source was a water heater. Advised patient she should get checked out in hospital to see HbCO and she is agreeable. Additional history from EMS and FD Disposition Supported by Telehealth Assessment: ET3 transport decisions: Transport to hospital EMS Disposition Reported: Same ET3 Encounter Completed by: Viral Dowling MD [facility]22 Note Date & Type Note Facility 12-30-2022 Evaluation note Encounter Date Diagnosis Assessment Notes Dec, Impingement of right shoulder (ICD-10 - M25.811) Extensive discussion about current condition and treatment options available. This appears to be pain secondary to subacromial bursitis / rotator cuff tendonitis due to impingment. We discussed and demonstrated gentle motion exercise and rotator cuff strengthening exercise. Discussed the use of non-steroidal anti-inflammator y medication. A 2/1cc marcaine / kenalog cortisone injection was performed into the subacromial space under sterile technique. Patient tolerated the injection well with no adverse reaction. We will provide an order for formal physical therapy. Dec, Bursitis of right shoulder (ICD-10 - M75.51) Dec, Right shoulder tendinitis (ICD-10 - M77.8) Dec, Acute pain of right shoulder (ICD-10 - M25.511) [facility] Other Clinical Note 05-26-2022 Note Date & Type Note Facility 05-26-2022 Note Chief Complaint consultation for cyst HPI Staff 41 year old female presents on consultation from Dr. Melgoza for left anterior thigh cyst. Present roughly 2 years. This has been enlarging. Denies pain. Never opened or drained. Never been on ATB for this in the past. History of Present Illness 41 yo female referred for cyst right distal thigh; present for several years, slight increase in size; tried to drain it with a needle, but just bled; no infection, no soreness, picks at it; no h/o other similar cysts; no asa or NSAID use; smokes daily. Review of Systems PHQ Score Initial Depression Screen Score: 0 ROS - Provider Constitutional: no fever, no sweats, no weight loss. Eyes: no glasses, no blurred vision, no visual loss. ENMT: no dentures, no hoarseness, no swallowing difficulties, no hearing loss, no ear infection(s), no nose bleeds. Cardiovascular: normal blood pressure, no chest pain, regular heartbeat, no heart murmur. Respiratory: no shortness of breath, no cough, no asthma, no wheezing. Gastrointestinal: no nausea, no vomiting, no diarrhea, no constipation, no blood in stool, no change in bowel habits, no abdominal pain, no hepatitis. Genitourinary: no kidney stones, no urine infection, no dysuria. Musculoskeletal: no pain, no weakness. Skin: no changing moles, no rash, yes skin lumps. Neurologic: no seizures, no epilepsy, no headache. Psychiatric: no emotional or psychiatric problem. Heme/Lymph: no bleeding problems, no anemia, no blood clots, no transfusions. Allergy/Immunologic: no swollen lymph nodes/glands, no IV drug abuse. Other: Additional ROS info: Except as noted in the above Review of Systems and in the History of Present Illness, all other systems have been reviewed and are negative or noncontributory. Physical Exam Vitals & Measurements HR: 76(Peripheral) RR: 16 BP: 124/82 HT: 165.1 cm HT: 165.1 cm WT: 73.9 kg WT: 73.9 kg BMI: 27.11 HEENT: normal conjunctiva, sclera clear, no scleral icterus, EOM intact, PERRLA, oral mucosa moist without lesions. Neck: trachea midline, no mass, symmetric, no thyromegaly or nodules, no adenopathy Respiratory: lungs CTA, respirations non labored. Cardiovascular: regular rate and rhythm, no murmur, no pedal edema or varicosities. Musculoskeletal: normal gait, digits and nails without infection, nodes, cyanosis, clubbing. Skin: no rashes, no lesions, no ulcers, 7 mm firm nodule, irregular distal left thigh; no ulceration or pigmentation change, no drainage, nontender Psychiatric/Neuro: oriented to time, place, person, judgement normal, affect appropriate for age, insight intact, no focal deficits. Tests: , review of old records completed, Discussed surgical options, risks, and possible complications with patient. Assessment/Plan 1. Neoplasm of uncertain behavior of skin of thigh (D48.5: Neoplasm of uncertain behavior of skin) plan excisional biopsy under local anesthesia in office; informed consent obtained; patient understands that the close proximity to the knee will likely result in a wide scar. Follow-up No qualifying data available Problem List/Past Medical History Ongoing BMI 27.0-27.9,adult Cerebral cysts Cervical radiculopathy Cervix dysplasia Chronic diarrhea Chronic idiopathic constipation Chronic obstructive pulmonary disease Depression GERD (gastroesophageal reflux disease) Migraines Neoplasm of uncertain behavior of skin of thigh Panic attack Smoker Tubular adenoma Historical No qualifying data Procedure/Surgical History Cranioplasty (2018), Craniotomy (2018), Cholecystectomy, Essure., Salpingectomy, Tubal ligation. Medications No active medications Allergies No Known Allergies No Known Medication Allergies Social History Alcohol - Denies Alcohol Use, 05/26/2022 Substance Abuse - Denies Substance Abuse, 05/26/2022 Tobacco 10 or more cigarettes (1/2 pack or more)/day in last 30 days Tobacco Use:. Never Smokeless Tobacco Use:. Cigarettes, 1 per day. Started age 13.0 Years. Yes, 05/26/2022 Family History Diabetes mellitus type 2: Father. Renal failure syndrome: Father. [facility] Comment on above: Result Comment: Elec tronically Signed By: José CLARK MD\.br\Date and Time Signed: 05/26/22 16:31 EDT Evaluation + Plan note Note Date & Type Note Facility Evaluation + Plan note Future Appointments Appointment Date:06/18/2022 03:00:00 PM Scheduled Provider:José CLARK MD Location:[facility] Appointment Type: Procedure 30 General Surgery [facility] Evaluation note Note Date & Type Note Facility Evaluation note Diagnosis Toxic effect of carbon monoxide, unintentional, initial encounter- Primary documented in this encounter [facility] History general Narrative - Reported Note Date & Type Note Facility History general Narrative - Reported Type Surgical History tubal ligation 2019 Surgical History brain surgery for cyst 2017 Surgical History gallbladder [facility] Other Hospital course Narrative Note Date & Type Note Facility Hospital course Narrative No data available for this section [facility] Discharge instructions Note Date & Type Note Facility Hospital Discharge instructions No data available for this section General Surgery [facility] Progress note Note Date & Type Note Facility Progress note No data available for this section General [facility] Summary Purpose Family History No Family History Records FoundNo Family History Records FoundNo Family History Records FoundNo Family History Records Found Advance Directives No Advanced Directives Records FoundNo Advanced Directives Records FoundNo Advanced Directives Records FoundNo Advanced Directives Records Found Additional Source Comments INFORMATION SOURCE (unrecogn ized section and content) DATE CREATED AUTHOR 12/17/2021 [facility] DATE CREATED AUTHOR AUTHOR'S ORGANIZ ATION 07/20/2022 [facility] DATE CREATED AUTHOR AUTHOR'S ORGANIZ ATION 12/30/2022 [facility] DATE CREATED AUTHOR AUTHOR'S ORGANIZ ATION 04/23/2023 [facility] Care Team (unrecognized sect ion and content) Personnel Name: Eileen Melgoza MD Address: [address] [place] [address]- Personnel Name: Eileen Melgoza MD Address: [address] [place] [address]- REASON FOR VISIT (unrecogniz ed section and content) Reason Comments carbon monoxide exposure FOR RECORDS PERTAINING TO PATIENTS WHO ARE OR HAVE BEEN ENROLLED IN A CHEMICAL DEPENDENCY/SUBSTANCEABUSE PROGRAM, SOME INFORMATION MAY BE OMITTED. This clinical summary was aggregated from multiple sources. Caution should be exercised in using it in the provision of clinical care. This summary normalizes information from multiple sources, and as a consequence, information in this document may materially change the coding, format and clinical context of patient data. In addition, data may be omitted in some cases. CLINICAL DECISIONS SHOULD BE BASED ON THE PRIMARY CLINICAL RECORDS. [employer] provides no warranty or guarantee of the accuracy or completeness of information in this document.
== END 2023-11-15 11:28 | disposition home or self-care (01) ==
LOC: MRI 11:27
PROVIDERS: PCP Family Medicine; Visit Provider Family Medicine
DX: G93.0 Cerebral cysts (principal); G43.909 Migraine, unspecified, not intractable, without status migrainosus
CPT/HCPCS: 70551

== ENCOUNTER 2023-12-27 19:55 | Outpatient (REF) | payer MEDICAID, SELFPAY ==
--- OUTSIDE RECORDS SUMMARY | 2023-12-27 20:04 | XMS_ITS | CCD ---
Author Name Unknown Address [address] [place] [address] Organization [facility] Care Team Providers Care Coastal And Estuary Specialist Name Role Phone Eileen Melgoza Primary Care Physician José CLARK Attending Unavailable José CLARK Attending Unavailable MARY WORRELL Admitting Unavailable MARY WORRELL Attending Unavailable HOY ., DR ARELLANO Primary Care Unavailable MARY WORRELL Consulting Unavailable HOY ., DR ARELLANO Admitting Unavailable HOY ., DR ARELLANO Attending Unavailable HOY ., DR ARELLANO Primary Care Unavailable HOY ., DR ARELLANO Consulting Unavailable PAULETTE MCKEON Consulting Unavailable HOY ., DR ARELLANO Primary [...] Unavailable HOY ., DR ARELLANO Consulting Unavailable [place], DR IDRIS [place] Consulting Unavailable HOY ., [...] Medication Allergies] Propensity to adverse reactions (disorder) [facility] Repository Medications Current Medications Medication Drug [...] 2 Episodic Other aftercare (1 source) Other nursing home (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 therapy; Translations: [OTH PENITENTIARY CURRENT DRUG THERAPY] Onset: 3 Episodic Other [...] Interpretation Reference Range Facility Progress Noteson 03-31-2023 [employer] P[employer] Installer Authentication Interface Message Text EMERGENCY TRIAGE, TREAT AND TRANSPORT (ET3) DOCUMENTATION OF TELEHEALTH VISIT Date / Time: 03/31/20231999 Name: Maddison Miranda : 1980 SSN: (Not on file) EMS Agency: [facility] [x] Verbal consent obtained [] Implied consent - patient with potential emergency medical condition requiring assessment of capacity to refuse treatment and/or transport VITAL SIGNS: see flowsheet documentation Reason for Telehealth Visit: Carbon monoxide exposure History of Present Illness: Exposure to CO while cooking with gas stove. Also has gas dryer and furnace but neither were running. [place] nauseous and lightheaded, headache. Was inside for [...] Completed by: Viral Dowling MD Normal [facility] XR SHOULDER RT 2V or >on [...] PAULETTE MCKEON Date: 2022-12-28 14:22 Normal [facility] CT CHEST W CONon 10-18-2022 CT CHEST [...] MEHDI CHAVEZ Date: 2022-10-18 15:16 Normal [facility] PROF 14(COMP METB)on 022 Albumin [Mass/Vol] 3.9 g/dL Normal 3.4-5.0 [facility] Comment on above: Performed By: #### H STROBETSY, CMP #### [facility] [address] [place] [address] Dr. Adriana Pandey Albumin/Globulin [Mass ratio] 1.2 {ratio} Normal [facility] Comment on above: Performed By: #### H STROPN, CMP #### [facility] [address] [address] [address] Adriana Pandey ALP [Catalytic activity/Vol] 92 U/L Normal 46-116 [facility] Comment on above: Performed By: #### H STROPN, CMP #### [facility] [address] [address] [address] Adriana Pandey ALT [Catalytic activity/Vol] 29 U/L Normal 14-59 [facility] Comment on above: Performed By: #### H STROPN, CMP #### [facility] [address] [address] [address] Adriana Pandey Anion gap [Moles/Vol] 15.7 mmol/L Normal [facility] Comment on above: Performed By: #### H STROPN, CMP #### [facility] [address] [place] [address] Dr. Adriana Pandey AST [Catalytic activity/Vol] 17 U/L Normal 15-37 [facility] Comment on above: Performed By: #### H STROPN, CMP #### [facility] [address] [place] [address] Dr. Adriana Pandey Bilirubin [Mass/Vol] 0.2 mg/dL Normal 0.2-1.0 [facility] Comment on above: Performed By: #### H STROPN, CMP #### [facility] [address] [place] [address] Dr. Adriana Pandey Calcium [Mass/Vol] 8.9 mg/dL Normal 8.5-10.1 [facility] Comment on above: Performed By: #### H STROPN, CMP #### [facility] [address] [place] [address] Dr. Adriana Pandey Chloride [Moles/Vol] 101 mmol/L Normal 98-107 [facility] Comment on above: Performed By: #### H STROPN, CMP #### [facility] [address] [place] [address] Dr. Adriana Pandey CO2 [Moles/Vol] 24.8 mmol/L Normal 21.0-32.0 [facility] Comment on above: Performed By: #### H STROPN, CMP #### [facility] [address] [address] [address] Adriana Pandey Creatinine [Mass/Vol] 0.91 mg/dL Normal 0.55-1.02 [facility] Comment on above: Performed By: #### H STROPN, CMP #### [facility] [address] [address] [address] Adriana Pandey EGFR-AF LATVIAN >60 Normal >=60 [facility] Comment on above: Performed By: #### H STROPN, CMP #### [facility] [address] [place] [address] Dr. Adriana Pandey EGFR-NON AF LATVIAN >60 Normal >=60 [facility] Comment on above: Performed By: #### H STROPN, CMP #### [facility] [address] [place] [address] Dr. Adriana Pandey Globulin (S) [Mass/Vol] 3.3 g/dL Normal [facility] Comment on above: Performed By: #### H STROPN, CMP #### [facility] [address] [place] [address] Dr. Adriana Pandey Glucose [Mass/Vol] 134 mg/dL Critically high 74-106 T [facility] Comment on above: Performed By: #### H STROPN, CMP #### [facility] [address] [address] [address] Adriana Pandey Potassium [Moles/Vol] 3.5 mmol/L Normal 3.5-5.1 [facility] Comment on above: Performed By: #### H STROPN, CMP #### [facility] [address] [address] [address] Adriana Pandey Protein [Mass/Vol] 7.2 g/dL Normal 6.4-8.2 [facility] Comment on above: Performed By: #### H STROPN, CMP #### [facility] [address] [place] [address] Dr. Adriana Pandey Sodium [Moles/Vol] 138 mmol/L Normal 136-145 [facility] Comment on above: Performed By: #### H ERAN, CMP #### [facility] [address] [place] [address] Dr. Adriana Pandey Urea nitrogen [Mass/Vol] 12.0 mg/dL Normal 7.0-18.0 [facility] Comment on above: Performed By: #### H ERAN, CMP #### [facility] [address] [place] [address] Dr. Adriana Pandey Urea nitrogen/Creatinine [Mass ratio] 13.2 mg/mg Normal [facility] Comment on above: Performed By: #### H ERAN, CMP #### [facility] [address] [place] [address] Dr. Adriana Pandey TROPONIN, HIGH SENSITIVITYon 10-01-2022 HSTROP 4.1 pg/mL Normal 4.0-51.3 [facility] Comment on above: Result Comment: CUT- OFF POINTS HAVE BEEN ESTABLISHED BASED ON THE FOURTH UNIVERSAL DEFINITIONS OF MYOCARDIAL INFARCTION. THE UPPER REFERENCE LIMIT (URL) OF TROPONIN, DEFINED THE 99TH PERCENTILE OF cTnI DISTRIBUTION IN A REFERENCE POPULATION, HAS BEEN CONFIRMED THE DECISION THRESHOLD FOR [place] DIAGNOSIS. Performed By: #### H ERAN, CMP #### [facility] [address] [place] [address] Dr. Adriana Pandey XR CHEST 2 Von [...] by: PAULETTE MCKEON Date: 2022-09-22 15:15 Normal [facility] Physician Referralon 022 Physician Referral [id number] Normal [facility] Covid-19 PCR (CVDTBH)on SARS-CoV-2 (COVID-19) RNA JIMMIE+probe Ql (Unsp spec) Not detected Normal NOT DETECTED [facility] Comment on above: Result Comment: This test is not yet approved or cleared by the [place] FDA. When there are no FDA-approved or cleared tests available, and other criteria are met, FDA can make tests available under an emergency access mechanism called an Emergency Use Authorization (EUA). The EUA for this test is supported by the Quality Control Lead of Health and Human Service's (HHS's) declaration [...] consistent with SARS-CoV-2. Performed By: #### [facility] #### [facility] [address] [place] [address] Dr. Adriana Pandey SYMPTOMATIC COVID-19 ANTIGEN on 04-01-2022 EUA Statement SEE BELOW Normal The [place] Comment on above: Result Comment: This test [...] sooner. Performed By: #### C VDAGS #### [facility] [address] [place], [place] [address] Dr. Adriana Pandey SARS-CoV-2 (COVID-19) RNA JIMMIE+probe Ql (Unsp spec) Negative Normal NEGATIVE [facility] Comment on above: Performed By: #### C VDAGS #### [facility] [address] [place], [place] [address] Dr. Adriana Pandey XR CHEST 2 Von [...] IDRIS LAGUNA Date: 2022-02-19 17:05 [address] [facility] SACRUM COCCYXon 12-15-2021 SACRUM COCCYX [facility] [address] [place] [id number] ======== Patient Name: MADDISON MIRANDA : [...] coccyx. Electronically signed: Kike Lino. Transcribed by: [email or web address], User Resident: Electronically Signed by: KIKE LINO @ 12/16/2021 08:58 AM Normal [facility] Comment on above: Order Comment: , harvinder cyx pain , Views (X-RAY, SACRUM AND COCCYX): Radiologic Protocol , coccyx pain , Views Vital Signs Date Time Vital Sign Value Performing Clinician Facility 03-31-2023 20:00-0400 Diastolic blood pressure 90 mm[Hg] [facility] 03-31-2023 20:00-0400 Heart rate 83 /min [facility] 03-31-2023 20:00-0400 Respiratory rate 18 /min [facility] 03-31-2023 20:00-0400 SaO2% (BldA) [Mass fraction] 96 % [facility]-31-2023 20:00-0400 Systolic blood pressure 162 mm[Hg] [facility] 12-30-2022 09:30-0500 Body height 167.64 cm Erwin Salgado Other [facility] Other 12-30-2022 09:30-0500 Body mass index (BMI) [Ratio] 27.11 kg/m2 Erwin Salgado Other [facility] Other 12-30-2022 09:30-0500 Body weight 76.2 kg Erwin Salgado Other [facility] Other 05-26-2022 15:43-0400 Blood Pressure Location [facility] 05-26-2022 15:43-0400 Diastolic blood pressure 82 mm[Hg] [facility] 05-26-2022 15:43-0400 Heart rate 76 /min [facility] 05-26-2022 15:43-0400 Respiratory rate 16 /min José [facility] 05-26-2022 15:43-0400 Systolic blood pressure 124 mm[Hg] José [employer] [facility] Encounters Encounter Date Encounter Type Care Provider Facility Start: 03-31-2023 End: 04-22-2023 ambulatory [facility] Triage, Treat and Transport Start: 03-31-2023 End: 03-31-2023 [facility] Comment on above: Arrived Start: 12-30-2022 End: 12-30-2022 ambulatory Erwin Salgado Other [facility] Other Start: 12-30-2022 Office outpatient ne w 30 minutes Erwin Salgado [facility] Start: 12-28-2022 End: 12-28-[address] EILEEN MELGOZA . Facility:[facility] Start: 10-18-2022 End: 10-19-[address] EILEEN MELGOZA . Facility:[facility] Start: 10-05-[address] EILEEN MELGOZA . Facili ty:[facility] Start: 10-01-2022 End: 10-01-[address] EILEEN MLEGOZA . Facility:[facility] Start: 09-22-2022 End: 09-23-[address] EILEEN MELGOZA . Facility:[facility] Start: 07-21-2022 ambulatory José CLARK Facility :[facility] Start: 07-21-2022 End: 07-21-2022 Patient encounter procedure José CLARK General Surgery [facility] [place] Start: 07-06-[address] EILEEN MELGOZA . Facili ty:[facility] Start: 05-26-2022 End: 05-27-2022 ambulatory José CLARK Facility:[facility] Start: 05-26-2022 End: 05-26-2022 Patient encounter procedure José CLARK General [facility] Start: 04-30-2022 ambulatory José CLARK Facility:[facility] [...] 2) Shingles (RZV) Vaccine (1 of 2) [facility] Start: 2018 Screening for malign ant neoplasm of breast [facility] Start: 1999 Screening for malign ant neoplasm of cervix Pap Smear [facility] Start: 1996 Hepatitis C screening Hepatitis C An tibody [facility] Start: 1996 Tetanus + diphtheria + acellular pertussis vaccine (product) Tdap Booster [facility] Start: 1993 HIV screening HIV Test [facility] Start: 06-17-1979 COVID-19 Vaccine (#1) COVID-19 Vacci ne (#1) [facility] Payers Date Payer Category Payer Medicaid [id number] 1980 Unknown [id number] 2.16.8 [id number] 1980 Unknown [id number] 2.16.8 [id number] 1978 Unknown [id number] 2.16.84 [id number] 1978 Unknown [id number] 2.16.84 [id number] 1978 Unknown [id number] 2.16.84 0.1.179679.3.579.2.593 1978 Unknown [id number] 2.16.84 0.1.177097.3.579.2.593 1978 Unknown [id number] 2.16.84 0.1.088460.3.579.2.593 1978 Unknown [id number] 2.16.84 0.1.619411.3.579.2.593 1978 Unknown [id number] 2.16.84 0.1.082561.3.579.2.593 1978 Unknown [id number] 2.16.84 0.1.818658.3.579.2.593 1978 Unknown [id number] 2.16.84 0.1.561095.3.579.2.593 1978 Unknown [id number] 2.16.84 [id number] 1978 Unknown [id number] 2.16. [id number] 1959 Unknown [id number] Social History Date Type Detail Facility Start: 05-26-2022 Tobacco smoking status Heavy tobacco smoker (finding) [facility] Tobacco smoking status Never General Surgery [place] Sex Assigned At Female [facility] Tobacco smoking status [facility] Tobacco smoking consumption unknown [facility] Start: 1980 [...] 1980 SSN: (Not on file) EMS Agency: [facility] [x] Verbal consent obtained [] Implied consent - patient with potential emergency medical condition requiring assessment of capacity to refuse treatment and/or transport VITAL SIGNS: see flowsheet documentation Reason for Telehealth Visit: Carbon monoxide exposure History of Present Illness: Exposure to CO while cooking with gas stove. Also has gas dryer and furnace but neither were running. [place] nauseous and lightheaded, headache. Was inside for [...] [facility] Dowling MD [facility] Note Date & [...] pain of right shoulder (ICD-10 - M25.511) [facility] Other Clinical Note 05-26-2022 Note Date & [...] type 2: Father. Renal failure syndrome: Father. [facility] Comment on above: Result Comment: Elec tronically Signed By: José CLARK MD\.br\Date and Time Signed: 05/26/22 16:31 EDT Evaluation + Plan note Note Date & Type Note Facility Evaluation + Plan note Future Appointments Appointment Date:06/18/2022 03:00:00 PM Scheduled Provider:José CLARK MD Location:[facility] Appointment Type: Procedure 30 General Surgery [place] Evaluation note Note Date & Type Note Facility Evaluation note Diagnosis Toxic effect of carbon monoxide, unintentional, initial encounter- Primary documented in this encounter [facility] History general Narrative - Reported Note Date & Type Note Facility History general Narrative - Reported Type Surgical History tubal ligation 2019 Surgical History brain surgery for cyst 2017 Surgical History gallbladder [facility] Other Hospital course Narrative Note Date & Type Note Facility Hospital course Narrative No data available for this section [facility] [place] [facility] Discharge instructions Note Date & Type Note Facility Hospital Discharge instructions No data available for this section [facility] [place] Progress note Note Date & Type Note Facility Progress note No data available for this section [facility] Surgery [place] Summary Purpose Family History No Family History Records FoundNo Family History Records FoundNo Family History Records FoundNo Family History Records Found Advance Directives No Advanced Directives Records FoundNo Advanced Directives Records FoundNo Advanced Directives Records FoundNo Advanced Directives Records Found Additional Source Comments INFORMATION SOURCE (unrecogn ized section and content) DATE CREATED AUTHOR 12/17/2021 [facility] DATE CREATED AUTHOR AUTHOR'S ORGANIZ ATION 07/20/2022 [facility] DATE CREATED AUTHOR AUTHOR'S ORGANIZ ATION 12/30/2022 [facility] DATE CREATED AUTHOR AUTHOR'S ORGANIZ ATION 04/23/2023 [facility] Care Team (unrecognized sect ion and content) Personnel Name: Eileen Melgoza MD Address: [address] [place] [address]- Personnel Name: Eileen Melgoza MD Address: [address] [place] [address]- REASON FOR VISIT (unrecogniz ed section and [...] BE BASED ON THE PRIMARY CLINICAL RECORDS. [employer] provides no warranty or guarantee of the accuracy or completeness of information in this document.
[2023-12-30 14:09] LABS: Age Gdln ACOG Testing Note (.); HPV Aptima Negative (Negative); IGP, Aptima HPV, rfx 16/18,45 Note (.)
== END 2023-12-27 19:56 | disposition home or self-care (01) ==
LOC: LAB 19:55
PROVIDERS: PCP Family Medicine; Visit Provider Physician Assistant
DX: Z01.419 Encounter for gynecological examination (general) (routine) without abnormal findings (principal)
CPT/HCPCS: 87624; G0145

== ENCOUNTER 2024-03-07 12:52 | Outpatient (OUT) | payer MEDICAID, SELFPAY ==
--- NOTE | 2024-03-07 12:55 | US_ITS ---
The [address] [address] Patient Name: CHANTEL MARR MRN: [id number] date: 1980 Sex: F Assigned Patient Location: US Current Patient Location: US Accession/Order Number: [id number] Exam Date: 03/07/2024 12:56 Report Date: 03/07/2024 13:39 At the request of: OLIVIA DAVILA Procedure: US pelvis w/ transvaginal EXAMINATION: US pelvis w/ transvaginal HISTORY: Amenorrhea N91.2 COMPARISON: No relevant comparison available. FINDINGS: Transabdominal and transvaginal images The uterus is normal in size, contour and echotexture measuring 7.4 x 3.4 x 4.5 cm. No focal myometrial mass The endometrium measures 4 mm. Hyperechogenicity within the endometrial cavity measuring 7 mm possibly calcification The ovaries are not visualized US/US pelvis w/ transvaginal IMPRESSION: The endometrium is thin with calcification, nonspecific Nonvisualization of the ovaries Electronically authenticated by: IDRIS LAGUNA Date: 03/07/2024 13:39
--- OUTSIDE RECORDS SUMMARY | 2024-03-07 13:01 | XMS_ITS | CCD ---
[facility] [place] Team Providers Care Nutrition Services Associate Name Role Phone Eileen Melgoza Primary Care Physician José CLARK Attending Unavailable José CLARK Attending Unavailable MARY WORRELL Admitting Unavailable MARY WORRELL Attending Unavailable HOY ., DR ARELLANO Primary Care Unavailable MARY WORRELL Consulting Unavailable HOY ., DR ARELLANO Admitting Unavailable HOY ., DR ARELLANO Attending Unavailable HOY ., DR ARELLANO Primary Care Unavailable HOY ., DR ARELLANO Consulting Unavailable NEFWENDIE, PAULETTE Consulting Unavailable HOY ., DR ARELLANO Primary Care Unavailable PAY ., DR OCONNOR Admitting Unavailable PAY ., DR OCONNOR Attending Unavailable PAY ., DR OCONNOR Consulting Unavailable HOY ., DR ARELLANO Primary Care Unavailable HAY ., DR LAWTON Admitting Unavailable HAY ., DR LAWTON Attending Unavailable HAY ., DR LAWTON Consulting Unavailable NEFWENDIE, PAULETTE Consulting Unavailable HOY ., DR ARELLANO Admitting Unavailable HOY ., DR ARELLANO Attending Unavailable HOY ., DR ARELLANO Primary Care Unavailable HOY ., DR ARELLANO Consulting Unavailable ZIEBER, DR MEHDI Jackson Consulting Unavailable HOY ., DR ARELLANO Admitting Unavailable HOY ., DR ARELLANO Attending Unavailable HOY ., DR ARELLANO Primary Care Unavailable HOY ., DR ARELLANO Consulting Unavailable [place], DR IDRIS [place] Consulting Unavailable HOY ., DR ARELLANO Admmark Unavailable [...] Medication Allergies] Propensity to adverse reactions (disorder) [facility] Repository Medications Current Medications Medication Drug [...] 2 Episodic Other aftercare (1 source) Other long-term (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 therapy; Translations: [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] Onset: 3 Episodic Other and unspecified benign neoplasm (2 sources) Tubular adenoma 07-13-2022 Episodic Other connective tissue disease (1 source) [...] Interpretation Reference Range Facility Progress Noteson 03-31-2023 [employer] 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 Also has gas dryer and furnace but neither were running. Goodwin nauseous and lightheaded, headache. Was inside for [...] Completed by: Viral Dowling MD Normal [facility] XR SHOULDER RT 2V or >on [...] Date: 2022-12-28 14:22 Normal [facility] CT CHEST W CONon 10-18-2022 [...] Date: 2022-10-18 15:16 Normal [facility] PROF 14(COMP METB)on 022 Albumin [Mass/Vol] 3.9 g/dL Normal 3.4-5.0 [facility] Comment on above: Performed By: #### H ERAN, CMP #### [facility] [address] [place] [address] Dr. Adriana Pandey Albumin/Globulin [Mass ratio] 1.2 {ratio} Normal [facility] Comment on above: Performed By: #### H ERAN, CMP #### [facility] [address] [address] [address] Adriana Pandey ALP [Catalytic activity/Vol] 92 U/L Normal 46-116 [facility] Comment on above: Performed By: #### H STROPN, CMP #### [facility] [address] [address] [address] Adriana Pandey ALT [Catalytic activity/Vol] 29 U/L Normal 14-59 [facility] Comment on above: Performed By: #### H STROPN, CMP #### [facility] [address] [address] [address] Adriana Pandey Anion gap [Moles/Vol] 15.7 mmol/L Normal [facility] Comment on above: Performed By: #### H STROPN, CMP #### [facility] [address] [address] [address] Adriana Pandey AST [Catalytic activity/Vol] 17 U/L Normal 15-37 [facility] Comment on above: Performed By: #### H STROPN, CMP #### [facility] [address] [address] [address] Adriana Pandey Bilirubin [Mass/Vol] 0.2 mg/dL Normal 0.2-1.0 [facility] Comment on above: Performed By: #### H STROPN, CMP #### [facility] [address] [address] [address] Adriana Pandey Calcium [Mass/Vol] 8.9 mg/dL Normal 8.5-10.1 [facility] Comment on above: Performed By: #### H STROPN, CMP #### [facility] [address] [address] [address] Adriana Pandey Chloride [Moles/Vol] 101 mmol/L Normal 98-107 [facility] Comment on above: Performed By: #### H STROPN, CMP #### [facility] [address] [address] [address] Adriana Pandey CO2 [Moles/Vol] 24.8 mmol/L Normal 21.0-32.[address] [facility] Comment on above: Performed By: #### H STROPN, CMP #### [facility] [address] [address] [address] Adriana Pandey Creatinine [Mass/Vol] 0.91 mg/dL Normal 0.55-1.02 [facility] Comment on above: Performed By: #### H STROPN, CMP #### [facility] [address] [address] [address] Adriana Pandey EGFR-AF PALAUAN >60 Normal >=60 [facility] Comment on above: Performed By: #### H STROPN, CMP #### [facility] [address] [address] [address] Adriana Pandey EGFR-NON AF PALAUAN >60 Normal >=60 [facility] Comment on above: Performed By: #### H STROPN, CMP #### [facility] [address] [address] [address] Adriana Pandey Globulin (S) [Mass/Vol] 3.3 g/dL Normal [facility] Comment on above: Performed By: #### H STROPN, CMP #### [facility] [address] [address] [address] Adriana Pandey Glucose [Mass/Vol] 134 mg/dL Critically high 74-106 [facility] Comment on above: Performed By: #### H STROPN, CMP #### [facility] [address] [address] [address] Adriana Pandey Potassium [Moles/Vol] 3.5 mmol/L Normal 3.5-5.1 [facility] Comment on above: Performed By: #### H STROPN, CMP #### [facility] [address] [address] [address] Adriana Pandey Protein [Mass/Vol] 7.2 g/dL Normal 6.4-8.2 [facility] Comment on above: Performed By: #### H STROPN, CMP #### [facility] [address] [address] [address] Adriana Pandey Sodium [Moles/Vol] 138 mmol/L Normal 136-145 [facility] Comment on above: Performed By: #### H STROPN, CMP #### [facility] [address] [place], [place] [address] Dr. Adriana Pandey Urea nitrogen [Mass/Vol] 12.0 mg/dL Normal 7.0-18.0 [facility] Comment on above: Performed By: #### H ERAN, CMP #### [facility] [address] [place], [place] [address] Dr. Adriana Pandey Urea nitrogen/Creatinine [Mass ratio] 13.2 mg/mg Normal [facility] Comment on above: Performed By: #### H ERAN, CMP #### [facility] [address] [place], [place] [address] Dr. Adriana Pandey TROPONIN, HIGH SENSITIVITYon 10-01-2022 HSTROP 4.1 pg/mL Normal 4.0-51.3 [facility] Comment on above: Result Comment: CUT- OFF POINTS HAVE BEEN ESTABLISHED BASED ON THE FOURTH UNIVERSAL DEFINITIONS OF MYOCARDIAL INFARCTION. THE UPPER REFERENCE LIMIT (URL) OF TROPONIN, DEFINED THE 99TH PERCENTILE OF cTnI DISTRIBUTION IN A REFERENCE POPULATION, HAS BEEN CONFIRMED THE DECISION THRESHOLD FOR HI DIAGNOSIS. Performed By: #### H ERAN, CMP #### [facility] [address] [address] [address] Adriana Pandey XR CHEST 2 Von [...] by: PAULETTE MCKEON Date: 2022-09-22 15:15 Normal [facility] Physician Referralon 022 Physician Referral [id number] Normal [facility] Covid-19 PCR (CVDTBH)on SARS-CoV-2 (COVID-19) RNA JIMMIE+probe Ql (Unsp spec) Not detected Normal NOT DETECTED [facility] Comment on above: Result Comment: This test is not yet approved or cleared by the [place] FDA. When there are no FDA-approved or cleared tests available, and other criteria are met, FDA can make tests available under an emergency access mechanism called an Emergency Use Authorization (EUA). The EUA for this test is supported by the Cosmetology Instructor of Health and Human Service's (HHS's) declaration [...] consistent with SARS-CoV-2. Performed By: #### C VDTB #### [facility] [address] [place] [address] Dr. Adriana Pandey SYMPTOMATIC COVID-19 ANTIGEN on 04-01-2022 EUA Statement SEE BELOW Normal [facility] Comment on above: Result Comment: This [...] By: #### C VDAGS #### [facility] [address] [place] [address] Dr. Adriana Pandey SARS-CoV-2 (COVID-19) RNA JIMMIE+probe Ql (Unsp spec) Negative Normal NEGATIVE [facility] Comment on above: Performed By: #### C VDAGS #### [facility] [address] [address] [address] Adriana Pandey XR CHEST 2 Von [...] Date: 2022-02-19 17:05 Normal [facility] SACRUM COCCYXon 12-15-2021 SACRUM COCCYX [facility] Department of Radiology [address] [place] [id number] ======== Patient Name: MADDISON MIRANDA : [...] coccyx. Electronically signed: Kike Lino. Transcribed by: [email or web address], User Resident: Electronically Signed by: KIKE LINO @ 12/16/2021 08:58 AM Normal [facility] Comment on above: Order Comment: , harvinder cyx pain , Views (X-RAY, SACRUM AND COCCYX): Radiologic Protocol , coccyx pain , Views Vital Signs Date Time Vital Sign Value Performing Clinician Facility 03-31-2023 20:00-0400 Diastolic blood pressure 90 mm[Hg] [facility] 03-31-2023 20:00-0400 Heart rate 83 /min [facility] 03-31-2023 20:00-0400 Respiratory rate 18 /min [facility] 03-31-2023 20:00-0400 SaO2% (BldA) [Mass fraction] 96 % [facility] 03-31-2023 20:00-0400 Systolic blood pressure 162 mm[Hg] [facility] 12-30-2022 09:30-0500 Body height 167.64 cm Erwin Salgado Other [facility] Other 12-30-2022 09:30-0500 Body mass index (BMI) [Ratio] 27.11 kg/m2 Erwin Salgado Other [facility] Other 12-30-2022 09:30-0500 Body weight 76.2 kg Erwin Salgado Other [facility] Other 05-26-2022 15:43-0400 Blood Pressure Location [facility] [employer] 05-26-2022 15:43-0400 Diastolic blood pressure 82 mm[Hg] José SEAT 4aL [facility] [employer] 05-26-2022 15:43-0400 Heart rate 76 /min José SEAT 4aL [facility] [employer] 05-26-2022 15:43-0400 Respiratory rate 16 /min José SEAT 4aL [facility] [employer] 05-26-2022 15:43-0400 Systolic blood pressure 124 mm[Hg] José SEAT 4aL [facility] [employer] Encounters Encounter Date Encounter Type Care Provider Facility Start: 03-31-2023 End: 04-22-2023 ambulatory [facility] Emergenc y Triage, Treat and Transport Start: 03-31-2023 End: 03-31-2023 Emergency department patient visit [facility] Emergency Triage, Treat and Transport Comment on above: Arrived Start: 12-30-2022 End: 12-30-2022 ambulatory Erwin Salgado Other [facility] Other Start: 12-30-2022 Office outpatient ne w 30 minutes Erwin Salgado [facility] Start: 12-28-2022 End: 12-28-[address] [...] above: totanium plate Start: 10-24-2017 Craniotomy José NI LL Comment on above: right parietal Cholecystectomy José NILL Fallopian tube excision Marquis galan NILL Ligation of fallopian tube Charmaine hart NILL Transcervical sterilization José NILL Plan of Treatment Date Care Activity Detail Author Start: 2028 Shingles (RZV) Vacci ne (1 of 2) Shingles (RZV) Vaccine (1 of 2) [facility] Start: 2018 Screening for malign ant neoplasm of breast [facility] Start: 1999 Screening for malign ant neoplasm of cervix Pap Smear [facility] Start: 1996 Hepatitis C screening Hepatitis C An tibody [facility] Start: 1996 Tetanus + diphtheria + acellular pertussis vaccine (product) [facility]ap [facility] Start: 1993 HIV screening HIV Test [facility] Start: 06-17-1979 COVID-19 Vaccine (#1) COVID-19 Vacci ne (#1) [facility] Payers Date Payer Category Payer Medicaid [id number] 1980 Unknown [id number] 2.16.8 [id number] 1980 Unknown [id number] 1978 Unknown [id number] 2.16.84 [id number] 1978 Unknown [id number] 2.16.84 [id number] 1978 Unknown [id number] 2.16.84 [id number] 1978 Unknown [id number] 2.16.84 [id number] 1978 Unknown [id number] 2.16.84 [id number] 1978 Unknown [id number] 2.16.84 [id number] 1978 Unknown [id number] 2.16.84 [id number] 1978 Unknown [id number] 2.16.84 [id number] 1978 Unknown [id number] 2.16.84 [id number] 1978 Unknown [id number] 2.16.84 [id number] 1978 Unknown [id number] 2.16. [id number] 1959 Unknown [id number] Social History Date Type Detail Facility Start: 05-26-2022 Tobacco smoking status Heavy tobacco smoker (finding) [facility] Tobacco smoking status Never [facility] Sex Assigned At Female [facility] [place] Tobacco smoking status VTIS Tobacco smoking consumption unknown [facility] Start: 1980 Sex Assigned At Not on file [facility] Functional Status Date Assessment Result Facility 05-26-2022 Functional Status N/A [facility] [place] History of Present illness Narrative 03-31-2023 Viral Dowling MD - 03/31/2023 7:59 PM EDT Note Date & Type Note Facility 03-31-2023 History of Presen t illness Narrative Images from the original note were not included. EMERGENCY TRIAGE, TREAT AND TRANSPORT (ET3) DOCUMENTATION OF TELEHEALTH VISIT Date / Time: 03/31/20231999 Name: Maddison Miranda : 1980 SSN: (Not on file) EMS Agency: [facility] [x] Verbal consent obtained [] Implied consent - patient with potential emergency medical condition requiring assessment of capacity to refuse treatment and/or transport VITAL SIGNS: see flowsheet documentation Reason for Telehealth Visit: Carbon monoxide exposure History of Present Illness: Exposure to CO while cooking with gas stove. Also has gas dryer and furnace but neither were running. [place]win nauseous and lightheaded, headache. Was inside for [...] Viral Dowling MD [facility] 12-30-2022 Note Date & Type Note Facility 12-30-2022 Evaluation note Encounter Date Diagnosis Assessment Notes Dec, 2022 Impingement of right shoulder (ICD-10 - M25.811) [...] pain of right shoulder (ICD-10 - M25.511) [facility] Other Clinical Note 05-26-2022 Note Date & [...] type 2: Father. Renal failure syndrome: Father. [facility] Comment on above: Result Comment: Elec tronically Signed By: EDUARDO CALLES, José Jackson\.br\Date and Time Signed: 05/26/22 16:31 EDT Evaluation + Plan note Note Date & Type Note Facility Evaluation + Plan note Future Appointments Appointment Date:06/18/2022 03:00:00 PM Scheduled Provider:José CLARK MD Location:[facility] Appointment Type: Procedure 30 [facility] [...] surgery for cyst 2017 Surgical History gallbladder [facility] Other Hospital course Narrative Note Date & Type Note Facility Hospital course Narrative No data available for this section [facility] Discharge instructions Note Date & Type Note Facility Hospital Discharge instructions No data available for this section [facility] [place] Progress note Note Date & Type Note Facility Progress note No data available for this section [facility] [place] Summary Purpose Family History No Family History Records FoundNo Family History Records FoundNo Family History Records FoundNo Family History Records Found Advance Directives No Advanced Directives Records FoundNo Advanced Directives Records FoundNo Advanced Directives Records FoundNo Advanced Directives Records Found Additional Source Comments INFORMATION SOURCE (unrecogn ized section and content) DATE CREATED AUTHOR 12/17/2021 [facility] DATE CREATED AUTHOR AUTHOR'S ORGANIZ ATION 07/20/2022 [facility] DATE CREATED AUTHOR AUTHOR'S ORGANIZ ATION 12/30/2022 [facility] DATE CREATED AUTHOR AUTHOR'S ORGANIZ ATION 04/23/2023 [facility] Care Team (unrecognized sect ion and content) Personnel Name: Eileen Melgoza MD Address: [address] [place] [id number] Personnel Name: Eileen Melgoza MD Address: [address] [place] [address] REASON FOR VISIT (unrecogniz ed section and [...] BE BASED ON THE PRIMARY CLINICAL RECORDS. [facility]. provides no warranty or guarantee of the accuracy or completeness of information in this document.
[2024-03-07 13:36] LABS: Basophils Absolute Auto 0.1 10^3/uL (0.0-0.1); Basophils Percent Auto 0.9 % (0.2-2.0); Eosinophils Absolute Auto 0.1 10^3/uL (0.0-0.7); Hematocrit 39.7 % (36.0-48.0); Hemoglobin 13.1 g/dL (12.0-16.0); Immature Granulocytes Abs Auto 0.02 10^3/uL (0.00-0.03); Immature Granulocytes Pct Auto 0.3 % (0.0-0.5); Lymphocytes Absolute Auto 2.9 10^3/uL (1.2-3.8); Lymphocytes Percent Auto 42.2 % (20.5-60.0); Mean Corpuscular Hemoglobin 29.2 pg (26.7-34.0); Mean Corpuscular Volume 88.6 fL (81.0-99.0); Mean Platelet Volume 9.7 fL (9.5-13.5); Monocytes Absolute Auto 0.7 10^3/uL (0.3-0.8); Monocytes Percent Auto 10.4 % (1.7-12.0); Neutrophils Absolute Auto 3.1 10^3/uL (1.4-6.5); Neutrophils Percent Auto 45.2 % (43.0-75.0); Platelet Count 266 10^3/uL (150-450); Red Blood Count 4.48 10^6/uL (4.20-5.40); Red Cell Distribution Width 11.8 % (11.0-15.0); White Blood Count 6.8 10^3/uL (4.0-11.0)
[2024-03-07 13:46] LABS: Estimated Average Glucose 117 mg/dL; Glycohemoglobin A1C 5.7 % (4.5-6.2)
[2024-03-07 14:18] LABS: HCG Quantitative 4 mIU/mL; Thyroid Stimulating Hormone 1.787 uIU/mL (0.358-3.740)
[2024-03-08 08:11] LABS: Prolactin 10.7 ng/mL (4.8-33.4)
== END 2024-03-07 12:53 | disposition home or self-care (01) ==
LOC: US 12:52
PROVIDERS: PCP Family Medicine; Visit Provider Physician Assistant
DX: N91.2 Amenorrhea, unspecified (principal)
CPT/HCPCS: 36415; 76830; 76856; 83036; 84146; 84443; 84702; 85025

== ENCOUNTER 2024-05-07 13:56 | Outpatient (OUT) | payer MEDICAID, SELFPAY | END 2024-05-07 13:57 | disposition home or self-care (01) | LOC: PST 13:56 | PROVIDERS: PCP Family Medicine; Visit Provider Surgery | DX: Z01.818 Encounter for other preprocedural examination (principal) ==

== ENCOUNTER 2024-05-15 09:15 | Day surgery (SDC) | payer MEDICAID, SELFPAY ==
[2024-05-15 09:30] VITALS: BMI 25.6
--- OUTSIDE RECORDS SUMMARY | 2024-05-15 09:36 | XMS_ITS | CCD ---
Author Organization [facility] Care Team Providers Care Hammer Heater Name Role Phone Eileen Melgoza Primary Care Physician [phone] José CLARK Attending Unavailable José CLARK Attending [...] Unavailable HOY ., DR ARELLANO Consulting Unavailable GLEN HOPE, DR IDRIS [place] Consulting Unavailable HOY ., [...] UNKNOWN Attending Unavailable PROVIDER, UNKNOWN Admitting Unavailable OLIVIA DAVILA Attending Unavailable CORINA MOSQUERA Attending Unavailable Allergies Allergy Classification Reported Allergen(s) Allergy Type Date of Onset Reaction(s) Facility (1 source) No Known Medication Allergies; Translations: [No Known Medication Allergies] Propensity to adverse reactions (disorder) [facility] Repository Medications Current Medications Medication Drug Class(es) [...] 2 Episodic Other aftercare (1 source) 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 therapy; Translations: [OTH BELLOWS TESTER CURRENT DRUG THERAPY] Onset: 3 Episodic Other [...] Interpretation Reference Range Facility Progress Noteson 03-31-2023 Event Designer Authentication Interface Message Text EMERGENCY TRIAGE, TREAT AND TRANSPORT (ET3) DOCUMENTATION OF TELEHEALTH VISIT Date / Time: 03/31/20231999 Name: Maddison Miranda : 1980 SSN: (Not on file) EMS Agency: [facility] [x] Verbal consent obtained [] Implied consent - patient with potential emergency medical condition requiring assessment of capacity to refuse treatment and/or transport VITAL SIGNS: see flowsheet documentation Reason for Telehealth Visit: Carbon monoxide exposure History of Present Illness: Exposure to CO while cooking with gas stove. Also has gas dryer and furnace but neither were running. [place] nauseous and lightheaded, headache. Was inside for [...] Completed by: Viral Dowling MD Normal [facility] XR SHOULDER RT 2V or >on [...] PAULETTE MCKEON Date: 2022-12-28 14:[address] [facility] CT CHEST W CONon 10-18-2022 CT [...] MEHDI CHAVEZ Date: 2022-10-18 15:[address] [facility] PROF 14(COMP METB)on 022 Albumin [Mass/Vol] 3.9 g/dL Normal 3.4-5.0 [facility] Comment on above: Performed By: #### H STROBETSY, CMP #### [facility] [address] [place] [address] Dr. Adriana Pandey Albumin/Globulin [Mass ratio] 1.2 {ratio} Normal [facility] Comment on above: Performed By: #### H STROPN, CMP #### [facility] [address] [address] [address] Adriana Pandey ALP [Catalytic activity/Vol] 92 U/L Normal 46-116 [facility] Comment on above: Performed By: #### H STROPN, CMP #### [facility] [address] [address] [address] Adriana Pandey ALT [Catalytic activity/Vol] 29 U/L Normal 14-59 [facility] Comment on above: Performed By: #### H STROPN, CMP #### [facility] [address] [address] [address] Adriana Pandey Anion gap [Moles/Vol] 15.7 mmol/L Normal [facility] Comment on above: Performed By: #### H STROPN, CMP #### [facility] [address] [address] [address] Adriana Pandey AST [Catalytic activity/Vol] 17 U/L Normal 15-37 [facility] Comment on above: Performed By: #### H STROPN, CMP #### [facility] [address] [address] [address] Adriana Pandey Bilirubin [Mass/Vol] 0.2 mg/dL Normal 0.2-1.0 [facility] Comment on above: Performed By: #### H STROPN, CMP #### [facility] [address] [address] [address] Adriana Pandey Calcium [Mass/Vol] 8.9 mg/dL Normal 8.5-10.1 [facility] Comment on above: Performed By: #### H STROPN, CMP #### [facility] [address] [address] [address] Adriana Pandey Chloride [Moles/Vol] 101 mmol/L Normal 98-107 [facility] Comment on above: Performed By: #### H STROPN, CMP #### [facility] [address] [address] [address] Adriana Pandey CO2 [Moles/Vol] 24.8 mmol/L Normal 21.0-32.0 [facility] Comment on above: Performed By: #### H STROPN, CMP #### [facility] [address] [address] [address] Adriana Pandey Creatinine [Mass/Vol] 0.91 mg/dL Normal 0.55-1.02 [facility] Comment on above: Performed By: #### H STROPN, CMP #### [facility] [address] [address] [address] Adriana Pandey EGFR-AF SRI LANKAN >60 Normal >=60 [facility] Comment on above: Performed By: #### H STROPN, CMP #### [facility] [address] [address] [address] Adriana Pandey EGFR-NON AF SRI LANKAN >60 Normal >=60 [facility] Comment on above: Performed By: #### H STROPN, CMP #### [facility] [address] [address] [address] Adriana Pandey Globulin (S) [Mass/Vol] 3.3 g/dL Normal [facility] Comment on above: Performed By: #### H STROPN, CMP #### [facility] [address] [address] [address] Adriana Pandey Glucose [Mass/Vol] 134 mg/dL Critically high 74-106 [facility] Comment on above: Performed By: #### H STROPN, CMP #### [facility] [address] [address] [address] Adriana Pandey Potassium [Moles/Vol] 3.5 mmol/L Normal 3.5-5.1 [facility] Comment on above: Performed By: #### H STROPN, CMP #### [facility] [address] [address] [address] Adriana Pandey Protein [Mass/Vol] 7.2 g/dL Normal 6.4-8.2 [facility] Comment on above: Performed By: #### H STROPN, CMP #### [facility] [address] [address] [address] Adriana Pandey Sodium [Moles/Vol] 138 mmol/L Normal 136-145 [facility] Comment on above: Performed By: #### H ERAN, CMP #### [facility] [address] [address] [address] Adriana Pandey Urea nitrogen [Mass/Vol] 12.0 mg/dL Normal 7.0-18.0 [facility] Comment on above: Performed By: #### H ERAN, CMP #### [facility] [address] [place] [address] Dr. Adriana Pandey Urea nitrogen/Creatinine [Mass ratio] 13.2 mg/mg Normal [facility] Comment on above: Performed By: #### H ERAN, CMP #### [facility] [address] [place] [address] Dr. Adriana Pandey TROPONIN, HIGH SENSITIVITYon 10-01-2022 HSTROP 4.1 pg/mL Normal 4.0-51.3 [facility] Comment on above: Result Comment: CUT- OFF POINTS HAVE BEEN ESTABLISHED BASED ON THE FOURTH UNIVERSAL DEFINITIONS OF MYOCARDIAL INFARCTION. THE UPPER REFERENCE LIMIT (URL) OF TROPONIN, DEFINED THE 99TH PERCENTILE OF cTnI DISTRIBUTION IN A REFERENCE POPULATION, HAS BEEN CONFIRMED THE DECISION THRESHOLD FOR ME DIAGNOSIS. Performed By: #### H ERAN, CMP #### [facility] [address] [place] [address] Dr. Adriana Pandey XR CHEST 2 Von [...] by: PAULETTE MCKEON Date: 2022-09-22 15:15 Normal [facility] Physician Referralon 022 Physician Referral [id number] [facility] SARS-CoV-2 (COVID-19) RNA JIMMIE+probe Ql (Unsp spec) Not detected Normal NOT DETECTED [facility] Comment on above: Result Comment: This test is not yet approved or cleared by the [place] FDA. When there are no FDA-approved or cleared tests available, and other criteria are met, FDA can make tests available under an emergency access mechanism called an Emergency Use Authorization (EUA). The EUA for this test is supported by the [place] of Health and Human Service's (HHS's) declaration [...] SARS-CoV-2. Performed By: #### C VDTB #### [facility] [address] [place] [address] Dr. Adriana Pnadey SYMPTOMATIC COVID-19 ANTIGEN on 04-01-2022 EUA Statement SEE BELOW Normal The [facility] Comment on above: Result Comment: This [...] sooner. Performed By: #### C VDAGS #### [facility] [address] [place], [place] [address] Dr. Adriana Pandey SARS-CoV-2 (COVID-19) RNA JIMMIE+probe Ql (Unsp spec) Negative Normal NEGATIVE [facility] Comment on above: Performed By: #### C VDAGS #### [facility] [address] [place] [address] [address] [address] Adriana Pandey XR CHEST 2 Von [...] IDRIS LAGUNA Date: 2022-02-19 17:[address] [facility] SACRUM COCCYXon 12-15-2021 SACRUM COCCYX [facility] Department of Radiology [address] [place] [id number] ======== Patient Name: MADDISON MIRANDA : [...] coccyx. Electronically signed: Kike Lino. Transcribed by: [email or web address], User Resident: Electronically Signed by: KIKE LINO @ 12/16/2021 08:58 AM Normal [facility] Comment on above: Order Comment: , harvinder cyx pain , Views (X-RAY, SACRUM AND COCCYX): Radiologic Protocol , coccyx pain , Views Vital Signs Date Time Vital Sign Value Performing Clinician Facility 03-31-2023 20:00-0400 Diastolic blood pressure 90 mm[Hg] [facility] [place] 03-31-2023 20:00-0400 Heart rate 83 /min [facility] 03-31-2023 20:00-0400 Respiratory rate 18 /min [facility] 03-31-2023 20:00-0400 SaO2% (BldA) [Mass fraction] 96 % [facility] [employer] 03-31-2023 20:00-0400 Systolic blood pressure 162 mm[Hg] [facility] [employer] 12-30-2022 09:30-0500 Body height 167.64 cm Erwin Salgado Other [facility] [employer] Other 12-30-2022 09:30-0500 Body mass index (BMI) [Ratio] 27.11 kg/m2 Erwin Salgado Other [facility] [employer] Other 12-30-2022 09:30-0500 Body weight 76.2 kg Erwin Salgado Other [facility] [employer] Other 05-26-2022 15:43-0400 Blood Pressure Location [facility] 05-26-2022 15:43-0400 Diastolic blood pressure 82 mm[Hg] [facility] [employer] [facility] 05-26-2022 15:43-0400 Heart rate 76 /min [facility] 05-26-2022 15:43-0400 Respiratory rate 16 /min José [employer] [facility] 05-26-2022 15:43-0400 Systolic blood pressure 124 mm[Hg] [facility] Encounters Encounter Date Encounter Type Care Provider Facility Start: 04-30-2024 End: 04-30-2024 ambulatory CORINA MOSQUERA Not Available Start: 12-27-2023 End: 12-27-2023 ambulatory OLIVIA DAVILA Not Available Start: 03-31-2023 End: 04-22-2023 ambulatory [facility] Emergenc y Triage, Treat and Transport Start: 03-31-2023 End: 03-31-2023 Emergency department patient visit [facility] [place] Emergency Triage, Treat and Transport Comment on above: Arrived Start: 12-30-2022 End: 12-30-2022 ambulatory Erwin Salgado Other [facility] [employer] Other Start: 12-30-2022 Office outpatient ne w 30 minutes Erwin Salgado [facility] Start: 12-28-2022 End: 12-28-[address] EILEEN MELGOZA . Facility:[facility] Start: 10-18-2022 End: 10-19-[address] EILEEN MELGOZA . Facility:[facility] Start: 10-05-[address] EILEEN MELGOZA . Facili ty:[facility] Start: 10-01-2022 End: 10-01-[address] EILEEN MELGOZA . Facility:[facility] Start: 09-22-2022 End: 09-23-[address] EILEEN MELGOZA . Facility:[facility] Start: 07-21-2022 ambulatory José R EDUARDO Facility [facility] Start: 07-21-2022 End: 07-21-2022 Patient encounter procedure José R NILL General Surgery [facility] Start: 07-06-[address] EILEEN MELGOZA . Facili ty:[facility] Start: 05-26-2022 End: 05-27-2022 ambulatory José R JML Facility:[facility] Start: 05-26-2022 End: 05-26-2022 Patient encounter procedure José R NILL General Surgery [facility] [place] Start: 04-30-2022 ambulatory José CLARK Facility:[facility] Start: 04-01-2022 End: 04-01-2022 ambulatory MARY WORRELL Facility:[facility] Start: 03-11-[address] EILEEN MELGOZA . Facili ty:[facility] Start: 02-19-2022 End: 02-20-[address] EILEEN MELGOZA . Facility:[facility] Start: 01-26-[address] DOCTOR HASSAN Facility :[facility] Procedures Date Procedure Procedure Detail Performing Clinician Start: 10-24-2017 Cranioplasty José CASTANEDA LL Comment on above: totanium plate Start: 10-24-2017 Craniotomy José HENSLEY Comment on above: right parietal Cholecystectomy José NILL Fallopian tube excision Marquis aebrigette NILL Ligation of fallopian tube Charmaine hart NILL Transcervical sterilization José NILL Plan of Treatment Date Care Activity Detail Author Start: 2028 Shingles (RZV) Vacci ne (1 of 2) Shingles (RZV) [facility] Start: 2018 Screening for malign ant neoplasm of breast Mammography [facility] Start: 1999 Screening for malign ant neoplasm of cervix Pap Smear [facility] Start: 1996 Hepatitis C screening Hepatitis C An tibody [facility] Start: 1996 Tetanus + diphtheria + acellular pertussis vaccine (product) Tdap Booster [facility] Start: 1993 HIV screening HIV Test [facility] Start: 06-17-1979 COVID-19 Vaccine (#1) COVID-19 Vacci ne (#1) [facility] Payers Date Payer Category Payer Medicaid [id number] 1980 Unknown [id number] 2.16.8 [id number] 1980 Unknown [id number] 2.16.8 [id number] 1980 Unknown [id number] 2.16.84 [id number] 1978 Unknown [id number] 2.16.84 0.1.015198.3.579.2.593 1978 Unknown [id number] 2.16.84 0.1.862943.3.579.2.593 1978 Unknown [id number] 2.16.84 0.1.908368.3.579.2.593 1978 Unknown [id number] 2.16.84 0.1.122172.3.579.2.593 1978 Unknown [id number] 2.16.84 0.1.036035.3.579.2.593 1978 Unknown [id number] 2.16.84 0.1.338468.3.579.2.593 1978 Unknown [id number] 2.16.84 0.1.727679.3.579.2.593 1978 Unknown [id number] 2.16.84 0.1.577229.3.579.2.593 1978 Unknown [id number] 2.16.84 0.1.037499.3.579.2.593 1978 Unknown [id number] 2.16. 840.1.403135.3.579.2.732 1978 Unknown [id number] 2.16.84 0.1.201632.3.579.2.1259 1978 Unknown [id number] 2.16.84 0.1.865640.3.579.2.1259 1959 Unknown [id number] Social History Date Type Detail Facility Start: 05-26-2022 Tobacco smoking status Heavy tobacco smoker (finding) General Surgery [place] Tobacco smoking status Never General Surgery [facility] Sex Assigned At Female Genera l Surgery [place] Tobacco smoking status GAIS Tobacco smoking consumption unknown [facility] Start: 1980 Sex Assigned At Not on file [facility] Functional Status Date Assessment Result Facility 05-26-2022 Functional Status N/A General Shah rgery [place] History of Present illness Narrative 03-31-2023 Viral Dowling MD - 03/31/2023 7:59 PM EDT Note Date & Type Note Facility 03-31-2023 History of Presen t illness Narrative Images from the original note were not included. EMERGENCY TRIAGE, TREAT AND TRANSPORT (ET3) DOCUMENTATION OF TELEHEALTH VISIT Date / Time: 03/31/20231999 Name: Maddison Miranda : 1980 SSN: (Not on file) EMS Agency: [facility] [x] Verbal consent obtained [] Implied consent - patient with potential emergency medical condition requiring assessment of capacity to refuse treatment and/or transport VITAL SIGNS: see flowsheet documentation Reason for Telehealth Visit: Carbon monoxide exposure History of Present Illness: Exposure to CO while cooking with gas stove. Also has gas dryer and furnace but neither were running. [place] nauseous and lightheaded, headache. Was inside for [...] Viral Dowling MD documented in this encounter [facility] Evaluation note 03-09-2023 Note Date & Type Note Facility 12-30-2022 [...] pain of right shoulder (ICD-10 - M25.511) [facility] Other Clinical Note 05-26-2022 Note Date & [...] type 2: Father. Renal failure syndrome: Father. [facility] Comment on above: Result Comment: Elec tronically Signed By: EDUARDO CALLES, José [place]\.br\Date and Time Signed: 05/26/22 16:31 EDT Evaluation + Plan note Note Date & Type Note Facility Evaluation + Plan note Future Appointments Appointment Date:06/18/2022 03:00:00 PM Scheduled Provider:José CLARK MD Location:[facility] Appointment Type: Procedure 30 General Surgery [place] Evaluation note Note Date & Type Note Facility Evaluation note Diagnosis Toxic effect of carbon monoxide, unintentional, initial encounter- Primary documented in this encounter [facility] History general Narrative - Reported Note Date & Type Note Facility History general Narrative - Reported Type Surgical History tubal ligation 2019 Surgical History brain surgery for cyst 2017 Surgical History gallbladder [facility] Other Hospital course Narrative Note Date & Type Note Facility Hospital course Narrative No data available for this section General Surgery [place] [facility] Discharge instructions Note Date & Type Note Facility Hospital Discharge instructions No data available for this section [facility] Progress note Note Date & Type Note Facility Progress note No data available for this section General Surgery [place] Summary Purpose Family History No Family History Records FoundNo Family History Records FoundNo Family History Records FoundNo Family History Records FoundNo Family History Records Found Advance Directives No Advanced Directives Records FoundNo Advanced Directives Records FoundNo Advanced Directives Records FoundNo Advanced Directives Records FoundNo Advanced Directives Records Found Additional Source Comments INFORMATION SOURCE (unrecogn ized section and content) DATE CREATED AUTHOR 12/17/2021 [facility] DATE CREATED AUTHOR AUTHOR'S ORGANIZ ATION 07/20/2022 [facility] DATE CREATED AUTHOR AUTHOR'S ORGANIZ ATION 12/30/2022 [facility] DATE CREATED AUTHOR AUTHOR'S ORGANIZ ATION 04/23/2023 [facility] DATE CREATED AUTHOR AUTHOR'S ORGANIZ ATION 05/07/2024 [facility] EPIC Care Team (unrecognized sect ion and content) Personnel Name: Eileen Melgoza MD Address: [address] [place] [address] Personnel Name: Eileen Melgoza MD Address: [address] [place] [address] REASON FOR VISIT (unrecogniz ed section and [...] BE BASED ON THE PRIMARY CLINICAL RECORDS. [facility] [employer] [facility]. provides no warranty or guarantee of the accuracy or completeness of information in this document.
[2024-05-15 09:46] LABS: HCG Qualitative NEGATIVE (NEGATIVE); Internal Control Within Normal Limits
[2024-05-15] MEDS: LACTATED RINGER'S SOLUTION 1,000 ML 50 ML IV (09:47)
--- NOTE | 2024-05-15 11:11 | W.PM.PROCNOT ---
Date of procedure: 05/15/24 Pre-op diagnosis: blood per rectum, history of hemorrhoids Post-op diagnosis: other (external hemorrhoids, skin tags, regressing ) Procedure: Previous colonoscopy: 2013 procedure: diagnostic colonoscopy The patient was given IV conscious sedation.? The patient's SPO2 remained above 90% throughout the procedure. The colonoscope was inserted per rectum and advanced under direct vision to the cecum without difficulty.? The prep was good.? Findings: Terminal ileum os: normal Cecum/Ascending colon: normal Transverse colon: normal Descending/Sigmoid colon: normal Rectum/Anus: examined in normal and retroflexed positions and was normal aside for regressing external hemorrhoids, no sign of enlarged internal hemorrhoids Withdrawal Time was (minutes): 10 The colon was decompressed and the scope was removed.? The patient tolerated the procedure well. Recommendations/Plan: 1.? Lifestyle and dietary modifications as discussed 2.? F/U in 10 years 3. Continue sitz bath, fiber and avoid straining on the toilet 4.? Discussed with the family Anesthesia: MAC Surgeon: Lamont Martinez Estimated blood loss (mL): 0 Pathology: none sent Condition: stable Disposition: PACU
[2024-05-15 11:45] VITALS: BP 89/45; PULSE 73; TEMP 36.4; O2SAT 93
[2024-05-15 12:00] VITALS: BP 110/85; PULSE 63; O2SAT 98
[2024-05-15 12:15] VITALS: BP 120/82; PULSE 53; O2SAT 99
== END 2024-05-15 12:15 | disposition home or self-care (01) ==
PROVIDERS: Anesthesiology; PCP Family Medicine; Visit Provider Surgery
PROC: (CPT 812; principal; 2024-05-15 10:15)
DX: K62.5 Hemorrhage of anus and rectum (principal); K64.4 Residual hemorrhoidal skin tags; R10.30 Lower abdominal pain, unspecified; Z90.49 Acquired absence of other specified parts of digestive tract; Z98.51 Tubal ligation status; R56.9 Unspecified convulsions; Z87.891 Personal history of nicotine dependence; K21.9 Gastro-esophageal reflux disease without esophagitis; R73.03 Prediabetes; Z79.84 Long term (current) use of oral hypoglycemic drugs
CPT/HCPCS: 45378; 36415; 84703; J2704

== ENCOUNTER 2025-01-21 13:09 | Outpatient (OUT) | payer MEDICAID, SELFPAY ==
--- NOTE | 2025-01-21 13:13 | XR_ITS ---
[address] [address] Patient Name: CHANTEL MARR MRN: [id number] date: 1980 Sex: F Assigned Patient Location: [facility] Current Patient Location: [facility] Accession/Order Number: [id number] Exam Date: 01/21/2025 13:48 Report Date: 01/21/2025 13:50 At the request of: EILEEN BELTRAN MD Procedure: XR cervical spine 2-3V 3 viewscervical spine HISTORY: Chronic neck pain with radiation into the arms COMPARISON: None POSTOPERATIVE CHANGES: None BONY ALIGNMENT: Adequate HYPERMOBILITY::No bending imaging. LISTHESIS:None FRACTURE: None DISC DEGENERATION: C3-C5 mild disc space narrowing. Multilevel facet degeneration. FACETS: Unremarkable FORAMEN: Not assessed DENS: Intact CRANIOCERVICAL JUNCTION: Unremarkable SOFT TISSUES: Unremarkable XR/XR cervical spine 2-3V IMPRESSION: Mild multilevel degenerative change Impression dictated by: Oneil Sykes M.D.01/21/2025 1:50 PM Dictation Location: [employer] Electronically authenticated by: [id number] Y Date: 01/21/2025 13:50
== END 2025-01-21 13:10 | disposition home or self-care (01) ==
LOC: RAD 13:10
PROVIDERS: PCP Family Medicine; Visit Provider Family Medicine
DX: M54.12 Radiculopathy, cervical region (principal); M50.30 Other cervical disc degeneration, unspecified cervical region
CPT/HCPCS: 72040

== ENCOUNTER 2025-02-08 01:55 | Emergency (ER) | payer MEDICAID, SELFPAY ==
--- OUTSIDE RECORDS SUMMARY | 2025-02-08 02:00 | XMS_ITS | CCD ---
Author Organization [facility] Care Team Providers Care Compensation Supervisor Name Role Phone Eileen Melgoza Primary Care [...] Unavailable HAY ., DR LAWTON Consulting Unavailable PAULETTE MCKEON Consulting Unavailable HOY ., DR ARELLANO Admitting Unavailable HOY ., DR ARELLANO Attending Unavailable HOY ., DR ARELLANO Primary Care Unavailable HOY ., DR ARELLANO Consulting Unavailable ZIEBER, DR MEHDI Jackson Consulting Unavailable HOY ., DR ARELLANO Admmark Unavailable HOY ., DR ARELLANO Attending Unavailable HOY ., DR ARELLANO Primary Care Unavailable HOY ., DR ARELLANO Consulting Unavailable [place], DR IDRIS [place] Consulting Unavailable HOY [...] Erwin Salgado Unavailable Unavailable Primary Care Provider Unavailkomal e PROVIDER, UNKNOWN Attending Unavailable PROVIDER, UNKNOWN Admitting Unavailable OLIVIA DAVILA Attending Unavailable CORINA MOSQUERA Attending Unavailable RICA SHAH Attending Unavailable Eileen Melgoza MD Primary Care Provider [phone] Allergies Allergy Classification Reported Allergen(s) Allergy Type Date of Onset Reaction(s) Facility (1 source) No Known Medication Allergies; Translations: [No Known Medication Allergies] Propensity to adverse reactions (disorder) [facility] Repository Medications Current Medications Medication Drug Class(es) Dates Sig (Normalized) Sig (Original) Acetaminophen (1 source) Acetaminophen Active celecoxib 200 mg oral capsule (1 source) Nonsteroidal Anti-inflammatory Drug take 1 capsule by mouth every twenty-four hours Celecoxib 200 MG 1 capsule with food Orally Once a day Active hydrocortisone 0.01 mg/mg topical ointment (3 sources) Corticosteroid Start: 04-30-2024 hydrocortisone 1 % ointment Indications: Residual hemorrhoidal skin tags Apply topically 2 (two) times a day Apply to external portion of anus 2x daily after sitz bath 28 g 1 04/30/2024 Active lamoTRIgine 25 mg oral tablet (3 sources) Mood Stabilizer, Anti-epileptic Agent take 2 tablets by mouth once daily lamoTRIgine (LaMICtal) 25 MG tablet 2 tablet Orally Once a day for 90 days Active 24 hr metFORMIN hydrochloride 500 mg extended release oral tablet (6 sources) Biguanide Start: 03-26-2024 take 1 tablet by mouth every twenty-four hours at mealtime metFORMIN XR (Glucophage-XR) 500 MG 24 hr tablet Indications: Insulin resistance Take 1 tablet (500 mg) by mouth in the evening. Take with meals Do not crush, chew, or split. 30 tablet 11 03/26/2024 Active take 1 tablet by mouth at mealti me metFORMIN (Glucophage) 500 MG tablet Take 500 mg by mouth in the morning. Take with meals. Active metoprolol tartrate 25 mg oral tablet (3 sources) beta-Adrenergic Bernice take 1 tablet by mouth twice daily metoprolol tartrate (Lopressor) 25 MG tablet Take 1 tablet twice a day by oral route. Active mupirocin 0.02 mg/mg topical ointment (2 sources) RNA Synthetase Inhibitor Antibacterial Start: End: mupirocin (Bactroban) 2 % ointment Indications: Flexural atopic dermatitis Apply topically 3 (three) times a day for 10 days 30 g 3 07/18/2024 07/28/2024 Active omeprazole 20 mg delayed release oral capsule (4 sources) Proton Pump Inhibitor take 1 capsule by mouth once daily omeprazole (PriLOSEC) [address] capsule Take 20 mg by mouth Daily Active triamcinolone acetonide 1 mg/ml topical cream (3 sources) Corticosteroid Start: End: triamcinolone (Kenalog) 0.1 % cream Indications: Allergic contact dermatitis due to plants, except food Apply topically 2 (two) times a day for 12 days Do not apply to face. 45 g 2 07/18/2024 07/30/2024 Active Start: 12-30-2022 Kenalog-40 Dec, 40 mg Problems Active Problems Problem Classification Problem Date Documented Da te Episodic/Chronic Abdominal pain (1 source) Abdominal pain; Translations: [Abdominal pain] Episodic Allergic reactions (2 sources) Flexural atopic dermatitis; Translations: [Other atopic dermatitis] 07-18-2024 Chronic Allergic reactions (2 sources) Allergic contact dermatitis caused by plant material; Translations: [Allergic contact dermatitis due to plants, except food] 07-18-2024 Episodic Anxiety disorders (3 sources) Panic attack; [...] 2 Episodic Other aftercare (1 source) Other 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 manager (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 therapy; Translations: [OTH [facility]DC CURRENT DRUG THERAPY] Onset: 3 Episodic Other [...] more but less than 30 05-26-2022 Episodic Other upper respiratory disease (2 sources) Chronic rhinitis; Translations: [Chronic rhinitis] 07-18-2024 Chronic Poisoning by nonmedicinal substances (2 sources) Toxic [...] Interpretation Reference Range Facility Progress Noteson 03-31-2023 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 Also has gas dryer and furnace but neither were running. [place] nauseous and lightheaded, headache. Was inside for [...] Completed by: Viral Dowling MD Normal [facility] [employer] [facility] XR SHOULDER RT 2V or >on [...] Date: 2022-12-28 14:22 Normal [facility] CT CHEST W CONon 10-18-2022 [...] Date: 2022-10-18 15:16 Normal [facility] PROF 14(COMP METB)on 022 Albumin [Mass/Vol] 3.9 g/dL Normal 3.4-5.0 [facility] Comment on above: Performed By: #### H STROPN, CMP #### [facility] [address] [address] [address] Adriana Pandey Albumin/Globulin [Mass ratio] 1.2 {ratio} Normal [facility] Comment on above: Performed By: #### H STROPN, CMP #### [facility] [address] [address] [address] Adriana Pandey ALP [Catalytic activity/Vol] 92 U/L Normal 46-116 [facility] Comment on above: Performed By: #### H STROPN, CMP #### [facility] [address] [address] [address] Adriana Pandey ALT [Catalytic activity/Vol] 29 U/L Normal 14-59 [facility] Comment on above: Performed By: #### H STROPN, CMP #### [facility] [address] [address] [address] Adriana Pandey Anion gap [Moles/Vol] 15.7 mmol/L Normal [facility] Comment on above: Performed By: #### H STROPN, CMP #### [facility] [address] [address] [address] Adriana Pandey AST [Catalytic activity/Vol] 17 U/L Normal 15-37 [facility] Comment on above: Performed By: #### H STROPN, CMP #### [facility] [address] [address] [address] Adriana Pandey Bilirubin [Mass/Vol] 0.2 mg/dL Normal 0.2-1.0 [facility] Comment on above: Performed By: #### H STROPN, CMP #### [facility] [address] [address] [address] Adriana Pandey Calcium [Mass/Vol] 8.9 mg/dL Normal 8.5-10.1 [facility] Comment on above: Performed By: #### H STROPN, CMP #### [facility] [address] [address] [address] Adriana Pandey Chloride [Moles/Vol] 101 mmol/L Normal 98-107 [facility] Comment on above: Performed By: #### H STROPN, CMP #### [facility] [address] [address] [address] Adriana Pandey CO2 [Moles/Vol] 24.8 mmol/L Normal 21.0-32.0 [facility] Comment on above: Performed By: #### H STROPN, CMP #### [facility] [address] [address] [address] Adriana Pandey Creatinine [Mass/Vol] 0.91 mg/dL Normal 0.55-1.02 [facility] Comment on above: Performed By: #### H STROPN, CMP #### [facility] [address] [address] [address] Adriana Pandey EGFR-AF TAJIK >60 Normal >=60 [facility] Comment on above: Performed By: #### H STROPN, CMP #### [facility] [address] [address] [address] Adriana Pandey EGFR-NON AF TAJIK >60 Normal >=60 [facility] Comment on above: Performed By: #### H STROPN, CMP #### [facility] [address] [address] [address] Adriana Pandey Globulin (S) [Mass/Vol] 3.3 g/dL Normal [facility] Comment on above: Performed By: #### H STROPN, CMP #### [facility] [address] [address] [address] Adriana Pandey Glucose [Mass/Vol] 134 mg/dL Critically high 74-106 [facility] Comment on above: Performed By: #### H STROPN, CMP #### [facility] [address] [address] [address] Adriana Pandey Potassium [Moles/Vol] 3.5 mmol/L Normal 3.5-5.1 [facility] Comment on above: Performed By: #### H STROPN, CMP #### [facility] [address] [address] [address] Adriana Pandey Protein [Mass/Vol] 7.2 g/dL Normal 6.4-8.2 [facility] Comment on above: Performed By: #### H STROPN, CMP #### [facility] [address] [address] [address] Adriana Pandey Sodium [Moles/Vol] 138 mmol/L Normal 136-145 [facility] Comment on above: Performed By: #### H PERICOPN, CMP #### [facility] [address] [address] [address] Adriana Pandey Urea nitrogen [Mass/Vol] 12.0 mg/dL Normal 7.0-18.0 [facility] Comment on above: Performed By: #### H PERICOPN, CMP #### [facility] [address] [address] [address] Adriana Pandey Urea nitrogen/Creatinine [Mass ratio] 13.2 mg/mg Normal [facility] Comment on above: Performed By: #### H PERICOPN, CMP #### [facility] [address] [address] [address] Adriana Pandey TROPONIN, HIGH SENSITIVITYon 10-01-2022 HSTROP 4.1 pg/mL Normal 4.0-51.3 [facility] Comment on above: Result Comment: CUT- OFF POINTS HAVE BEEN ESTABLISHED BASED ON THE FOURTH UNIVERSAL DEFINITIONS OF MYOCARDIAL INFARCTION. THE UPPER REFERENCE LIMIT (URL) OF TROPONIN, DEFINED THE 99TH PERCENTILE OF cTnI DISTRIBUTION IN A REFERENCE POPULATION, HAS BEEN CONFIRMED THE DECISION THRESHOLD FOR DE DIAGNOSIS. Performed By: #### H ERAN, CMP #### [facility] [address] [address] [address] Adriana Pandey XR CHEST 2 Von [...] by: PAULETTE MCKEON Date: 2022-09-22 15:15 Normal [facility] Physician Referralon 022 Physician Referral [id number] Normal [facility] Covid-19 PCR (CVDTB)on SARS-CoV-2 (COVID-19) RNA JIMMIE+probe Ql (Unsp spec) Not detected Normal NOT DETECTED [facility] Comment on above: Result Comment: This test is not yet approved or cleared by the [place] FDA. When there are no FDA-approved or cleared tests available, and other criteria are met, FDA can make tests available under an emergency access mechanism called an Emergency Use Authorization (EUA). The EUA for this test is supported by the Nuclear Auxiliary Operator of Health and Human Service's (HHS's) declaration [...] consistent with SARS-CoV-2. Performed By: #### [facility] #### [facility] [address] [place] [address] Dr. Adriana Pandey SYMPTOMATIC COVID-19 ANTIGEN on 04-01-2022 EUA Statement SEE BELOW Normal [facility] Comment on above: Result Comment: This [...] is revoked sooner. Performed By: #### C GHAZALAGS #### [facility] [address] [place] [id number] Adriana Pandey SARS-CoV-2 (COVID-19) RNA JIMMIE+probe Ql (Unsp spec) Negative Normal NEGATIVE [facility] Comment on above: Performed By: #### C VDAGS #### [facility] [address] [place] [id number] [address] Adriana Pandey XR CHEST 2 Von [...] Date: 2022-02-19 17:05 Normal [facility] SACRUM COCCYXon 12-15-2021 SACRUM COCCYX [facility] Department of Radiology [address] [place] [id number] ======== Patient Name: MADDISON MIRANDA : 1980 Sex: F Age: Race: White Pt. Location: Patient Status: D Ordered Date: 12/15/2021 2:35:00 PM Completed Date: 12/15/2021 02:44 PM Requesting Provider: VIRIDIANA DELACRUZ Attending Provider: VIRIDIANA DELACRUZ Report Copy To: HOY, EILEEN Signs & Symptoms: M53.3 Sacrococcygeal disorders, not [...] coccyx. Electronically signed: Kike Lino. Transcribed by: [email or web address], User Resident: Electronically Signed by: KIKE LINO @ 12/16/2021 08:58 AM Normal [facility] Comment on above: Order Comment: , harvinder cyx pain , Views (X-RAY, SACRUM AND COCCYX): Radiologic Protocol , coccyx pain , Views Vital Signs Date Time Vital Sign Value Performing Clinician Facility 07-18-2024 11:09-0400 Body height 167.6 cm Rica Shah MD Work Phone: [facility] 07-18-2024 11:09-0400 Body mass index (BMI) [Ratio] 26.63 kg/m2 Rica Shah MD Work Phone: [facility] 07-18-2024 11:09-0400 Body weight 74.84 kg Rica Shah MD Work Phone: [facility] 03-31-2023 20:00-0400 Diastolic blood pressure 90 mm[Hg] Et3 [facility] 03-31-2023 20:00-0400 Heart rate 83 /min Et3 [facility] 03-31-2023 20:00-0400 Respiratory rate 18 /min Et3 [facility] 03-31-2023 20:00-0400 SaO2% (BldA) [Mass fraction] 96 % Et3 [facility] 03-31-2023 20:00-0400 Systolic blood pressure 162 mm[Hg] Et3 [facility] 12-30-2022 09:30-0500 Body height 167.64 cm Erwin Olexa Other [facility] Other 12-30-2022 09:30-0500 Body mass index (BMI) [Ratio] 27.11 kg/m2 Erwin Olexa Other [facility] Other 12-30-2022 09:30-0500 Body weight 76.2 kg Erwin Olexa Other [facility] Other 05-26-2022 15:43-0400 Blood Pressure Location José ONEALL [facility] 05-26-2022 15:43-0400 Diastolic blood pressure 82 mm[Hg] José CLARK [facility] 05-26-2022 15:43-0400 Heart rate 76 /min José CLARK [facility] [place] 05-26-2022 15:43-0400 Respiratory rate 16 /min José CLARK [facility] 05-26-2022 15:43-0400 Systolic blood pressure 124 mm[Hg] José CLARK [facility] Encounters Encounter Date Encounter Type Care Provider Facility Start: 07-18-2024 End: 07-18-2024 Bamboo flowsmadie Shah MD Work Phone: [facility] Start: 07-18-2024 End: 07-18-2024 Mandeep Mtimemadie Shah MD Work Phone: [facility] Start: 07-18-2024 End: 07-18-2024 Office outpatient new 30 minutes Rica Shah MD Work Phone: [facility] Comment on above: Flexural atopic derm atitis (Primary Dx); Chronic rhinitis; Allergic contact dermatitis due to plants, except food Start: 07-18-2024 End: 07-18-2024 ambulatory RICA SHAH Not Available Start: 04-30-2024 End: 04-30-2024 ambulatory CORINA MOSQUERA Not Available Start: 12-27-2023 End: 12-27-2023 ambulatory OLIVIA DAVILA Not Available Start: 03-31-2023 End: 04-22-2023 ambulatory [facility] Triage, Treat and Transport Start: 03-31-2023 End: 03-31-2023 Emergency department patient visit [facility] Emergency Triage, Treat and Transport Comment on above: Arrived Start: 12-30-2022 End: 12-30-2022 ambulatory Erwin Salgado Other [facility] Other Start: 12-30-2022 Office outpatient ne w 30 minutes Erwin Salgado [facility] Start: 12-28-2022 End: 12-28-[address] EILEEN MELGOZA . Facility: Start: 10-18-2022 End: 10-19-[address] EILEEN MELGOZA . Facility:[facility] Start: 10-05-[address] EILEEN MELGOZA . Facili ty:[facility] Start: 10-01-2022 End: 10-01-[address] EILEEN MELGOZA . Facility:[facility] Start: 09-22-2022 End: 09-23-[address] EILEEN MELGOZA . Facility:[facility] Start: 07-21-2022 ambulatory José R NILL Facility : [place] Start: 07-21-2022 End: 07-21-2022 Patient encounter procedure José R NILL General Surgery Nill/Said [place] Start: 07-06-[address] EILEEN MELGOZA . Facili ty:[facility] Start: 05-26-2022 End: 05-27-2022 ambulatory José R NILL Facility: [facility] Start: 05-26-2022 End: 05-26-2022 Patient encounter procedure José R NILL General Surgery Nill/Said [facility] Start: 04-30-2022 ambulatory José CLARK Facility:[facility] Start: 04-01-2022 End: 04-01-2022 ambulatory MARY WORRELL Facility: Start: 03-11-[address] EILEEN MELGOZA . Facili ty:[facility] Start: 02-19-2022 End: 02-20-[address] EILEEN MELGOZA . Facility:[facility] Start: 01-26-[address] DOCTOR COHEN Facility :[facility] Procedures Date Procedure Procedure Detail Performing Clinician Start: 12-27-2023 Microscopic observat ion [Identifier] in Cervix by Cyto stain Rica Shah MD Work Phone: Start: 10-24-2017 Cranioplasty José HENSLEY Comment on above: totanium plate Start: 10-24-2017 Craniotomy José HENSLEY Comment on above: right parietal Cholecystectomy José CLARK Fallopian tube excision Marquis ael NILL Ligation of fallopian tube Charmaine CLARK Transcervical sterilization José CLARK Plan of Treatment Date Care Activity Detail Author Start: 2028 Shingles (RZV) Vacci ne (1 of 2) Shingles (RZV) Vaccine (1 of 2) [facility] Start: 12-26-2026 Screening for malign ant neoplasm of cervix [facility] Start: 12-31-2024 End: 12-31-2024 Patient encounter procedure 12/31/2024 1:30 PM EDT Office Visit [facility] [address] [place] [id number] Mic Giraldo, DO [address] [place] [address] [facility] Start: 09-17-2024 End: 09-17-2024 Patient encounter procedure 09/17/2024 2:40 PM EST [facility] [address] [place] [phone] Rica Shah MD [address] [place] [address] [facility] Start: 07-18-2024 End: 07-18-2024 Patient encounter procedure 07/18/2024 11:00 AM EDT Office Visit [facility] [address] [place] [phone] Rica Shah MD [address] [place] [address] Arrived [facility] Comment on above: Arrived Start: 06-24-2024 Influenza vaccination Influenza Vacc ine (#1) [facility] Start: 2018 Screening for malign ant neoplasm of breast [facility] Start: 2008 Screening for malign ant neoplasm of cervix HPV/Cotest [facility] Start: 1999 Screening for malign ant neoplasm of cervix Pap Smear [facility] Start: 1996 Hepatitis C screening Hepatitis C An tibody [facility] Start: 1996 Tetanus + diphtheria + acellular pertussis vaccine (product) Tdap Booster [facility] Start: 1993 HIV screening HIV Test [facility] Start: 06-17-1979 COVID-19 Vaccine (#1) COVID-19 Vacci ne (#1) [facility] Start: 1978 Screening for malign ant neoplasm of colon [facility] Payers Date Payer Category Payer Medicaid [place] [employer] [id number] 2022-Present [address] [place] [address] [id number] 2022 Medicaid [id number] 1980 Unknown [id number] 1980 Unknown [id number] [id number] 1980 Unknown [id number] [id number] 1980 Unknown [id number] 2.16.840.1.231956.3.579.2.593 1978 Unknown [id number] 2.16.840.1.287210.3.579.2.593 1978 Unknown [id number] 2.16.840.1.454435.3.579.2.593 1978 Unknown [id number] 2.16.840.1.091051.3.579.2.593 1978 Unknown [id number] 2.16.840.1.085488.3.579.2.593 1978 Unknown [id number] 2.16.840.1.654226.3.579.2.593 1978 Unknown [id number] 2.16.840.1.697789.3.579.2.593 1978 Unknown [id number] 2.16.840.1.766696.3.579.2.593 1978 Unknown [id number] 2.16.840.1.789566.3.579.2.593 1978 Unknown [id number] 2.16.840.1.597717.3.579.2.732 1978 Unknown [id number] 2.16.840.1.489289.3.579.2.1259 1978 Unknown [id number] 2.16.840.1.673321.3.579.2.1259 1978 Unknown [id number] [id number] 1959 Unknown [id number] Social History Date Type Detail Facility Start: 05-26-2022 Tobacco smoking status Heavy tobacco smoker (finding) [facility] Tobacco smoking status Never [facility] Start: 07-18-2024 Sex Assigned At Female G [facility] Tobacco smoking status MDIS Tobacco smoking consumption unknown [facility] Start: 1980 Sex Assigned At Not on file [facility] Start: 07-18-2024 Tobacco smoking status MDIS Never smoked tobacco [facility] Start: 07-18-2024 Tobacco use and exposure Smokeless tobacco non-user [facility] Start: 07-18-2024 History of Social function [facility] Functional Status Date Assessment Result Facility 05-26-2022 Functional Status N/A General [facility] Clinical Notes 05-26-2022 to 07-18-2024 Rica Shah MD - 07/18/2024 11:00 AM DATBViral andres MD - 03/31/2023 7:59 PM EDT Note Date & Type Note Facility 07-18-2024 History of Presen t illness Narrative Maddison Miranda is a very pleasant 43 y.o. year old female who comes to the office today with the chief complaint of concern about environmental allergies. Referred by Dr. Eileen Melgoza She has redness on the eyelids and underneath her eyes. The skin here is bumpy and dry. She was given hydrocortisone for this which was helpful. Then the rash spread to her neck and she started to use the hydrocortisone there as well. She has been on Cetirizine for a while which does not help much. The skin is dry, red, scaly, itchy. She has never had this before. 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 She has 2 dogs at home one of which she got in Aug. She removed this one from the bedroom but this did not help. She has intermittent nasal airway obstruction which is not much better with her Cetirizine. The patient denies having any seasonal pattern to these allergy symptoms but instead notes the symptoms tend to be present year round with little seasonal variation.The patient denies having any typical allergic triggers for these nasal symptoms such as animal dander, dusting, vacuuming or mowing the lawn. EXAM The patient appears comfortable in the office today. Lungs are clear to auscultation bilaterally. The oral mucosa is pink and healthy without any lesions or ulcers. The palate elevates in the midline. The nasal mucosa is pink and healthy. There is no epistaxis mucopus or nasal polyposis noted. The nasal septum is approximately in the midline. The skin is notable for dry, red, scaly, itchy skin on the neck and around the eyes. IMPRESSION: Skin testing in the office today was performed under direct physician supervision for common environmental allergens including cat, dog, mouse, dust mite, mold spores, tree, grass, weed, and ragweed and all of these tests were negative in the setting of a positive histamine control. I provided reassurance for the patient that no allergen avoidance measures are necessary for environmental allergens. Atopic dermatitis - wet compress to periocular skin followed by hydrocortisone then petroleum jelly. For neck try triamcinolone [facility]. Moisturize mupirocin will be added to these regimens as well. I discussed with the patient the risks and benefits of topical steroids including the risk of skin atrophy such as thinning of the skin, loss of hair, a shiny appearance to the skin, or the development of telangiectasias or striae. I let the patient know that it is generally safe to use topical steroid cream twice daily for 7-10 days when having a flare of the condition and twice weekly as a maintenance therapy at other times. chronic rhinitis - We discussed the risks and benefits of therapy with azelastine nasal spray and she would like to defer on this at the current time. Follow-up [address] Melgoza, Thank you for allowing us to help with your patient Maddison Miranda's care. She is a very pleasant woman and we enjoyed having her in the office today. Please call with questions or concerns. documented in this encounter [facility] 03-31-2023 History of Presen t illness Narrative Images from the original note were not included. EMERGENCY TRIAGE, TREAT AND TRANSPORT (ET3) DOCUMENTATION OF TELEHEALTH VISIT Date / Time: 03/31/20231999 Name: Maddison Miranda : 1980 SSN: (Not on file) EMS Agency: [facility] [x] Verbal consent obtained [] Implied consent - patient with potential emergency medical condition requiring assessment of capacity to refuse treatment and/or transport VITAL SIGNS: see flowsheet documentation Reason for Telehealth Visit: Carbon monoxide exposure History of Present Illness: Exposure to CO while cooking with gas stove. Also has gas dryer and furnace but neither were running. [place] nauseous and lightheaded, headache. Was inside for [...] Viral Dowling MD documented in this encounter [facility] 12-30-2022 Evaluation note Encounter Date Diagnosis Assessment [...] pain of right shoulder (ICD-10 - M25.511) 1SDK Other 08-03-2022 NoteChief Complaint consultation for cyst HPI Staff 41 [...] swallowing difficulties, no hearing loss, no ear infection(s),no nose bleeds. Cardiovascular: normal blood pressure, no [...] mellitus type 2: Father. Renal failure syndrome: [facility] Result Comment: Electronically Signed By: José CLARK MD\.br\Date and Time Signed: 05/26/22 16:31 EDTEvaluation + Plan note Future Appointments Appointment Date:06/18/2022 03:00:00 PM Scheduled Provider:José CLARK MD Location:[facility] Appointment Type: Procedure 30 General Surgery [place] Evaluation note* Diagnosis Toxic effect of carbon monoxide, unintentional, initial encounter- Primary [facility] Flexural atopic dermatitis- Primary Other atopic dermatitis and related conditions Chronic rhinitis Allergic contact dermatitis due to plants, except food Contact dermatitis and other eczema due to plants (except food) [facility] - [facility]orted* Type Description Date Surgical History tubal ligation 2019 Surgical History brain surgery for cyst 2017 Surgical History gallbladder 1SDK Other Hospital course Narrative No data available for this section [facility] [place] [facility] Discharge instructions No data available for this section General Surgery [place] Progress note No data available for this section General Surgery [place] Summary Purpose Family History No Family History Records FoundNo Family History Records FoundNo Family History Records FoundNo Family History Records FoundNo Family History Records Found Advance Directives No Advanced Directives Records FoundNo Advanced Directives Records FoundNo Advanced Directives Records FoundNo Advanced Directives Records FoundNo Advanced Directives Records Found Additional Source Comments INFORMATION SOURCE (unrecogn ized section and content) DATE CREATED AUTHOR 12/17/2021 [facility] DATE CREATED AUTHOR AUTHOR'S ORGANIZ ATION 07/20/2022 [facility] DATE CREATED AUTHOR AUTHOR'S ORGANIZ ATION 12/30/2022 [facility] DATE CREATED AUTHOR AUTHOR'S ORGANIZ ATION 04/23/2023 [facility] DATE CREATED AUTHOR AUTHOR'S ORGANIZ ATION 07/20/2024 [facility] EPIC Care Team (unrecognized sect ion and content) Compensation Supervisor Relationship Specialty Start Date End Date Eileen Melogza MD [address] [place] [address] PCP - General Family Medicine 12/27/23 Compensation Supervisor Relationship Specialty Start Date End Date Eileen Melgoza MD [address] [place] [address] PCP - General Family Medicine 12/27/23 REASON FOR VISIT (unrecogniz ed section and content) Reason Comments carbon monoxide exposure Reason Comments new patient Pt states her eyes a nd neck are raw, sore, irritated and itchy. FOR RECORDS PERTAINING TO PATIENTS WHO ARE [...] BE BASED ON THE PRIMARY CLINICAL RECORDS. [facility] [employer] [facility]. provides no warranty or guarantee of the accuracy or completeness of information in this document.
[2025-02-08 02:05] VITALS: BP 154/88; PULSE 53; TEMP 36.8; O2SAT 99; BMI 25.9
[2025-02-08] MEDS: IBUPROFEN 600 MG TABLET PO (02:35)
--- NOTE | 2025-02-08 03:05 | ED.UPPEXIN1 ---
HPI HPI - Extremity Injury (Upper) General Chief Complaint: Extremity Injury, Upper Stated Complaint: FALL, UPPER RIGHT EXTREMITY INJURY Time Seen by Provider: 02/08/25 02:07 Source: patient Mode of arrival: walk-in Limitations: no limitations History of Present Illness HPI narrative: This 44-year-old female who is right-hand dominant presents for evaluation of a right upper extremity injury. The patient states she was going into the basement to put her dog in his crate when she missed a stair and fell down several stairs landing on her right forearm. She has several abrasions on her right forearm and pain in the medial aspect of the forearm. She also states her shoulder feels jammed and has some mild neck pain. She did not strike her head or lose consciousness. She was ambulatory after the fall and called her to bring her to the hospital. She states she has some numbness and tingling in her right fingers. She has no chest pain or shortness of breath. No medications were taken prior to arrival. Related Data Home Medications ?Medication ?Instructions ?Recorded ?Confirmed metoprolol tartrate 25 mg tablet 25 mg PO DAILY headache 07/09/23 05/15/24 omeprazole 20 mg capsule,delayed 20 mg PO DAILY 07/09/23 05/15/24 release cetirizine 10 mg tablet (All Day 10 mg PO DAILY PRN allergy symptoms 05/07/24 05/15/24 Allergy (cetirizine)) lamotrigine 25 mg tablet (Lamictal) 50 mg PO DAILY 05/07/24 05/15/24 metformin 500 mg tablet 500 mg PO DAILY 05/07/24 05/15/24 Allergies Allergy/AdvReac Type Severity Reaction Status Date / Time No Known Drug Allergies Allergy Verified 02/08/25 02:10 Opioid HPI Opioid Management Most Recent Pain and Opioid Data: Last Pain Scale 5 05/15/24 09:30 05/15/24 Review of Systems ROS Status of ROS 10 or more systems reviewed and unremarkable except as noted in history and below [facility] Medical History (Updated 02/08/25 @ 04:09 by Sondra Bello MD) Panic attacks ?F41.0 - Panic disorder [episodic paroxysmal anxiety] (ICD-10) COVID-19 ?U07.1 - COVID-19 (ICD-10) Seizures ?R56.9 - Unspecified convulsions (ICD-10) GERD (gastroesophageal reflux disease) ?K21.9 - Gastro-esophageal reflux disease without esophagitis (ICD-10) Prediabetes ?R73.03 - Prediabetes (ICD-10) Headache ?R51.9 - Headache, unspecified (ICD-10) Brain cyst ?G93.0 - Cerebral cysts (ICD-10) Bloody stool ?K92.1 - Melena (ICD-10) Residual hemorrhoidal skin tags ?K64.4 - Residual hemorrhoidal skin tags (ICD-10) Surgical History (Updated 05/07/24 @ 13:32 by Nessa Dolan NP) History of colonoscopy ?Z98.890 - Other specified postprocedural states (ICD-10) H/O brain surgery (2018) ?Z98.890 - Other specified postprocedural states (ICD-10) History of cholecystectomy ?Z90.49 - Acquired absence of other specified parts of digestive tract (ICD-10) History of bilateral salpingectomy ?Z90.79 - Acquired absence of other genital organ(s) (ICD-10) H/O tubal ligation ?Z98.51 - Tubal ligation status (ICD-10) Family History (Updated 05/07/24 @ 13:32 by Nessa Dolan NP) Other Family history of breast cancer Family history of colon cancer Family history of diabetes mellitus Family history of hypertension Family history of myocardial infarction Family history of renal failure Social History (Updated 05/07/24 @ 13:26 by Nessa Dolan NP) Within the past year, how often did you have a drink containing alcohol: 2-4 times a month Smoking status: Former smoker Non-prescribed substance use: denies use 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, [employer] Highest level of school completed/degree received: high school graduate Exam Narrative Exam Narrative: Vital signs and Nursing Notes reviewed: Patient is afebrile with a normal pulse, normal respiratory rate, she is mildly hypertensive with blood pressure 154/88, she has not hypoxic with pulse ox of 99% on room air General: Awake, alert, oriented, mildly uncomfortable and holding her right forearm on a pillow, GCS 15, no respiratory distress HEENT: Normocephalic atraumatic, mucous membranes are moist and pink, eyes are clear, normal conjunctiva, vision is grossly intact, no dental injury Neck: Supple, no JEVON bony vertebral tenderness or step-off Chest: Lungs are clear to auscultation with good air entry, there is no wheezing rhonchi or rales appreciated no accessory muscle use, patient is speaking in complete sentences-no chest wall tenderness to palpation CVS: Regular rate and rhythm S1-S2, no murmurs rubs or gallops, pulses are brisk and equal bilaterally ABD: Soft, nondistended, nontender, no rebound guarding or rigidity, bowel sounds are normal, no pulsatile masses appreciated Extremities: Tenderness with mild bruising/hematoma and swelling to the right medial mid forearm. There are some superficial abrasions on this aspect as well. There is no tenderness to the fingers or wrist. Patient is able to extend her elbow with no discomfort. She has some mild discomfort in her right anterior shoulder but is able to abduct the shoulder and cross it over to the left shoulder. Fingers are warm and sensate. Pulses are brisk and equal Skin: Normal in appearance without rash,pallor, petechiae or purpura Neuro: No focal deficits Constitutional Vital Signs, click to edit/add: Last Vital Signs Temp 98.3 F 02/08/25 02:05 Pulse 53 L 02/08/25 02:05 Resp 18 02/08/25 02:05 BP 154/88 H 02/08/25 02:05 Pulse Ox 99 02/08/25 02:05 O2 Del Method Room Air 02/08/25 02:05 Course Vital Signs Vital signs: Vital Signs Temperature 98.3 F 02/08/25 02:05 Pulse Rate 53 L 02/08/25 02:05 Respiratory Rate 18 02/08/25 02:05 Blood Pressure 154/88 H 02/08/25 02:05 Pulse Oximetry 99 02/08/25 02:05 Oxygen Delivery Method Room Air 02/08/25 02:05 Temperature 98.3 F 02/08/25 02:05 Pulse Rate 53 L 02/08/25 02:05 Respiratory Rate 18 02/08/25 02:05 Blood Pressure 154/88 H 02/08/25 02:05 Pulse Oximetry 99 02/08/25 02:05 Oxygen Delivery Method Room Air 02/08/25 02:05 MDM - Extremity Injury (Upper) MDM Narrative Medical decision making narrative: This 44-year-old female who is right-hand dominant presents for evaluation of pain in her right forearm and a sensation that her shoulder feels jammed after falling down several stairs while taking her dog to the basement to sleep in its kennel. The patient states she was trying to protect her dog from hurting it when she braced herself with her right forearm. She did not strike her head. There is no loss of consciousness. She has some tenderness and swelling to the right mid forearm area. Her hand and wrist are not injured. She has full range of motion of the elbow. She has full range of motion of the right shoulder with some mild tenderness and sensation that it feels jammed. She was medicated with dose of ibuprofen and given ice. X-ray of the right elbow does not show any acute fracture dislocation or foreign body. X-ray of the right forearm does not show any acute fracture dislocation or foreign body. The initial x-ray of the right shoulder appeared concerning for dislocation however her exam is not consistent with this. I suspected that the x-ray appeared to look like this due to her positioning for the portable x-ray and she was sent to the radiology suite for a repeat x-ray which does not show any fracture or dislocation or other notable abnormality. She requested something stronger for pain and was given a dose of [place] prior to discharge with Zoan. She will be discharged home with 2 additional [place] and a prescription for ibuprofen. She was instructed to use ice, rest and elevation as well as ibuprofen and pain medication as needed for ongoing pain. She is otherwise stable for discharge. Discharge Plan Discharge Chief Complaint: Extremity Injury, Upper Clinical Impression: Fall down stairs, Contusion of forearm, Right shoulder strain Patient Disposition: Home, Self-Care Time of Disposition Decision: 04:09 Condition: Good Prescriptions / Home Meds: No Action metoprolol tartrate 25 mg tablet 25 mg PO DAILY omeprazole 20 mg capsule,delayed release(DR/EC) 20 mg PO DAILY cetirizine [All Day Allergy (cetirizine)] 10 mg tablet 10 mg PO DAILY PRN (Reason: allergy symptoms) lamotrigine [Lamictal] 25 mg tablet 50 mg PO DAILY metformin 500 mg tablet 500 mg PO DAILY Print Language: Bolivian Instructions: Contusion in Adults (ED), Fall Prevention (ED) Referrals: Yimi Melgoza MD [Primary Care Provider] - 1 week
[2025-02-08] MEDS: ONDANSETRON 4 MG RAPDIS TABLET SL (04:30)
[2025-02-08] MEDS: HYDROCODONE/ACET 5-325 MG TABLET 2 TAB PO (04:30)
[2025-02-08] MEDS: HYDROCODONE/ACET 5-325 MG TABLET 1 TAB PO (04:30)
== END 2025-02-08 04:36 | disposition home or self-care (01) ==
PROVIDERS: Emergency Provider Emergency Medicine; PCP Family Medicine
DX: S46.911A Strain of unspecified muscle, fascia and tendon at shoulder and upper arm level, right arm, initial encounter (principal); S50.11XA Contusion of right forearm, initial encounter; S50.811A Abrasion of right forearm, initial encounter; W10.8XXA Fall (on) (from) other stairs and steps, initial encounter; Z90.49 Acquired absence of other specified parts of digestive tract; Z98.51 Tubal ligation status; Z87.891 Personal history of nicotine dependence
CPT/HCPCS: 73030; 73080; 73090; 99284; Q0162

== ENCOUNTER 2025-02-19 15:38 | Outpatient (OUT) | payer MEDICAID, SELFPAY ==
--- NOTE | 2025-02-19 15:42 | MR_ITS ---
The [address] [address] Patient Name: CHANTEL MARR MRN: [id number] date: 1980 Sex: F Assigned Patient Location: MRI Current Patient Location: MRI Accession/Order Number: [id number] Exam Date: 02/19/2025 16:37 Report Date: 02/19/2025 16:41 At the request of: EILEEN BELTRAN MD Procedure: MR cervical spine wo con EXAMINATION: MRI C-SPINE WITHOUT IV CONTRAST CLINICAL HISTORY: Neck pain radiating to both arms and shoulders. COMPARISON: None TECHNIQUE: Multiecho imaging was performed in the sagittal and axial planes without contrast administration. FINDINGS: Vertebral body heights appear maintained. No bone marrow edema. Normal cord signal. No paraspinal mass. No prevertebral soft tissue swelling. At C2-3: No posterior disc pathology. No neural canal or foraminal stenosis. At C3-4: Disc osteophyte complex present causing mild canal and bilateral neural foraminal stenosis. At C4-5: Disc osteophyte complex present causing mild canal and bilateral foraminal stenosis. At C5-6: No posterior disc pathology. No neural canal or foraminal stenosis. At C6-7: Disc osteophyte complex present causing mild canal and bilateral neural foraminal stenosis. At C7-T1: No posterior disc pathology. No neural canal or foraminal stenosis. MR/MR cervical spine wo con IMPRESSION: Multilevel degenerative disease as described above. No severe canal or neural foraminal stenosis is seen. Impression dictated by: Jeffery Bella Jr., D.OZarina 02/19/2025 4:41 PM Dictation Location: [place] [address] Electronically authenticated by: [id number] Y Date: 02/19/2025 16:41
== END 2025-02-19 15:39 | disposition home or self-care (01) ==
LOC: MRI 15:38
PROVIDERS: PCP Family Medicine; Visit Provider Family Medicine
DX: M54.12 Radiculopathy, cervical region (principal); M50.30 Other cervical disc degeneration, unspecified cervical region
CPT/HCPCS: 72141